=== PATIENT | female | born 1980 | race Caucasian/White ===

== ENCOUNTER 2019-05-11 09:31 | Emergency (ER) | payer BC, SELFPAY ==
--- NOTE | ~2019-05-11 | XR_ITS ---
EXAMINATION: XR wrist RT min 3V DATE: 05/11/2019 10:00 INDICATION: Generalized right wrist pain post fall TECHNIQUE: Posteroanterior, ulnar deviation, oblique, and lateral views of the right wrist were obtai shelia. COMPARISON: none FINDINGS: Alignment is normal. No fracture. Joint spaces are normal. Soft tissues are unremarkable. IMPRESSION: 1. Negative right wrist radiographs. Reviewed, dictated and finalized at location B.
--- NOTE | 2019-05-11 09:34 | ED.UPPEXIN ---
HPI - Extremity Injury (Upper) General Chief Complaint: Extremity Injury, Upper Stated Complaint: Injury to right wrist Time Seen by Provider: 05/11/19 09:54 Source: patient and RN notes reviewed Mode of arrival: ambulatory Limitations: no limitations History of Present Illness HPI narrative: 39-year-old female presents with concern for right breast pain. Reports 2 weeks ago she slipped, injuring her wrist. She denies intervention at that time. She reports 4 days ago she started using a wrist brace occasionally taking Advil. She denies numbness, tingling, weakness in her hand, digits complaint: injury to: right and wrist Other Extremity Injury: Right: wrist Related Data Home Medications Medication Instructions Recorded Confirmed aloe vera 25 mg PO DAILY 05/11/19 05/11/19 duloxetine 20 mg PO BID 05/11/19 05/11/19 gabapentin 600 mg PO HS 05/11/19 05/11/19 levothyroxine 50 mcg PO DAILY 05/11/19 05/11/19 pantoprazole 40 mg PO HS 05/11/19 05/11/19 Allergies Allergy/AdvReac Type Severity Reaction Status Date / Time Penicillins AdvReac Unknown Vomiting Verified 05/11/19 10:09 Review of Systems Review of Systems: Narrative: CONSTITUTIONAL: Denies malaise, chills, sweats, or fever. CARDIOVASCULAR: Denies chest pain, palpitations, or edema. RESPIRATORY: Denies cough or dyspnea. SKIN: Denies bruising or redness MUSCULOSKELETAL: Reports right anterior wrist pain NEUROLOGIC: Denies numbness, weakness. All systems reviewed & are unremarkable except as noted in HPI and below PMFSH Family History Family History (Updated 05/31/16 @ 13:34 by DOCTOR UNKNOWN) Father Hypertension Mother Hypertension Social History Social History Smoking status: Never smoker Alcohol intake: never Comments At time of signature, agree with nursing past medical, surgical, social and family history. There is no relevant family history pertinent to the presenting complaint Exam Narrative: Exam Narrative: GENERAL: Well-appearing, well-nourished, and in no acute distress. HEAD: Normocephalic, atraumatic. EYES: PERRLA, conjunctivae clear NECK: Supple. CHEST: Speaks in full sentences. No respiratory distress. HEART: Regular rate and rhythm. Normal and equal peripheral pulses. EXTREMITIES: Right wrist, hand, digits normal strength and sensation, no edema, normal range of motion. 5/5 strength with [xxx] flexion and extension. Normal sensation with sensitivity to light touch and pain. No open wounds, no skin tenting, no devitalized tissue or atrophy, no trophic changes, no ecchymosis, no obvious deformity, alignment normal, no point tenderness, nearby joints and structures intact. Distal pulses palpable and equal bilaterally, skin warm, dry, pink. Capillary refill less than 3 seconds. SKIN: Warm, dry, no rash. NEURO: Alert and oriented x3. PSYCH: Normal mood and affect Course Course Emergency Course: Patient is aware of diagnosis, understands and agrees to treatment plan. Anticipatory guidance given. Patient agrees to follow-up as directed and is aware of reasons to seek care at the emergency department. Portions of this record may have been created with voice recognition software Vital Signs Vital signs: Vital Signs Temperature 98.2 F 05/11/19 09:45 Pulse Rate 74 05/11/19 09:45 Respiratory Rate 18 05/11/19 09:45 Blood Pressure 110/55 L 05/11/19 09:45 Pulse Oximetry 100 05/11/19 09:45 Temperature 98.2 F 05/11/19 09:45 Pulse Rate 74 05/11/19 09:45 Respiratory Rate 18 05/11/19 09:45 Blood Pressure 110/55 L 05/11/19 09:45 Pulse Oximetry 100 05/11/19 09:45 Reviewed. MDM - Extremity Injury (Upper) MDM Narrative Medical decision making narrative: Patients injury and pain is consistent with musculoskeletal etiology. No signs of neurological or vascular compromise on exam. Compartments and tissues are soft without signs of compartment syndrome. Pain is felt appropriate for further evaluation on an ou
[2019-05-11 09:45] VITALS: BP 110/55; PULSE 74; RESP 18; TEMP 36.8; O2SAT 100
== END 2019-05-11 10:17 | disposition home or self-care (01) ==
PROVIDERS: Emergency Provider Nurse Practitioner
DX: S69.92XA Unspecified injury of left wrist, hand and finger(s), initial encounter (principal); W18.40XA Slipping, tripping and stumbling without falling, unspecified, initial encounter; E03.9 Hypothyroidism, unspecified; N80.9 Endometriosis, unspecified
CPT/HCPCS: 73110; 99213; G0463

== ENCOUNTER → 2022-08-05 14:02 | Outpatient (CLI) | payer OTHER, SELFPAY ==
--- NOTE | ~2022-08-05 | MR_ITS ---
MRI of the right ankle Clinical history: Brain Technique: Coronal proton-density and proton-density fat-sat images, axial proton-density and proton- density fat-sat images, and sagittal proton-density and proton-density fat-sat images were acquired. Findings: Syndesmotic ligaments are intact. There is thickening and mild increased signal of the ante rior talofibular ligament. Posterior talofibular ligament is intact. There is also increased signal o f the calcaneofibular ligament, which is somewhat poorly delineated. Deltoid ligament is probably int act. Medial flexor tendons, peroneal tendons, anterior extensor tendons, and Achilles tendon are intact. No osteochondral lesion of the talar dome identified. There is amorphous edema or cystic change in th e medial aspect of the talar neck, nonspecific. No other bone marrow signal abnormality seen. Joint s paces are preserved. Small tibiotalar joint effusion present. Plantar fascia is intact. No soft tissue mass or fluid collection seen. There is mild subcutaneous so ft tissue edema about the ankle. Impression: Mild thickening and increased signal of the anterior talofibular and calcaneofibular ligaments, mary tible with sprain. Associated mild subcutaneous soft tissue edema. Small tibiotalar joint effusion. Probable benign chronic cystic change in the medial talus versus possibly marrow edema or bone contus ion. Reviewed, dictated and finalized at location . Impression: Mild thickening and increased signal of the anterior talofibular and calcaneofi bular ligaments, compatible with sprain. Associated mild subcutaneous soft tiss ue edema. Small tibiotalar joint effusion. Probable benign chronic cystic change in the medial talus versus possibly marro w edema or bone contusion.
== END ==
PROVIDERS: PCP Nurse Practitioner Family; Visit Provider Podiatrist Foot & Ankle Surgery
DX: S93.401A Sprain of unspecified ligament of right ankle, initial encounter (principal); X58.XXXA Exposure to other specified factors, initial encounter; M25.471 Effusion, right ankle
CPT/HCPCS: 73721

== ENCOUNTER 2023-11-29 06:58 | Outpatient (CLI) | payer OTHER, SELFPAY ==
--- NOTE | ~2023-11-29 | MR_ITS ---
EXAMINATION: MR ankle RT wo con DATE: 11/29/2023 07:39 INDICATION: Right ankle pain. Right ankle sprain. TECHNIQUE: Magnetic resonance imaging (MRI) of the right ankle was performed without intravenous cont rast. Sequences included sagittal PD-weighted FS FSE, sagittal PD-weighted FSE, coronal PD-weighted F S FSE, coronal PD-weighted FSE, axial PD-weighted FS FSE, and axial PD-weighted FSE. COMPARISON: Right ankle MRI 08/05/2022 FINDINGS: Medial ankle ligaments: There are changes of prior sprain of the deltoid ligament characterized by thickening of the superfic ial component. The deep component demonstrates disorganized fibers and increased signal intensity. Lateral ankle ligaments: There are changes of prior lateral ankle sprain characterized by thickening and increased signal inte nsity involving the anterior talofibular ligament, calcaneofibular ligament, and anterior tibiofibula r ligament. The posterior talofibular ligament and posterior tibiofibular ligament are normal. Tendons: The peroneal tendons are normal. The anterior and medial ankle tendons are normal. There is mild Achi lles tendinopathy. Plantar fascia: Normal. Bones/other: There is edema-like marrow signal intensity involving medial malleolus. The talar dome is normal. Fluid: There is an 8 x 4 x 13 mm ganglion cyst anterior to the ankle joint. A skin marker overlies this area . IMPRESSION: 1. Changes of prior medial and lateral ankle sprains. 2. Ganglion cyst anterior to the ankle joint. Reviewed, dictated and finalized at location A.
== END 2023-11-29 06:59 | disposition home or self-care (01) ==
LOC: MICIMG 06:59
PROVIDERS: PCP Podiatrist Foot & Ankle Surgery; Visit Provider Podiatrist Foot & Ankle Surgery
DX: S93.401A Sprain of unspecified ligament of right ankle, initial encounter (principal); X58.XXXA Exposure to other specified factors, initial encounter
CPT/HCPCS: 73721

== ENCOUNTER 2024-03-15 11:55 | Emergency (ER) | payer OTHER, SELFPAY ==
--- OUTSIDE RECORDS SUMMARY | 2024-03-15 11:58 | XMS_ITS | Encounter Summary ---
Author Organization [facility] Address [address] [place] [address] Phone Care Team Providers Care Hot Mill Worker Name Role Phone Klaudia Rolle MD Primary Care Provider [phone] Keon Ellis MD Unavailable [phone] Darren Sullivan APRN, FWS FACULTY ASSISTANT Unavailable + [phone] Caryl Zambrano DO Primary Care Provider [phone] Danae Hughes APRN, FWS FACULTY ASSISTANT Unavailable Reason for Visit * Reason Comments Medication Refill Encounter Details Date Type Department Care Team (Late st Contact Info) Description 07/14/2020 Refill [facility] [address] [place] [address] Klaudia Rolle MD [address] [place] [address] Medication Refill Social History Tobacco Use Types Packs/Day Years Used Date Smoking Tobacco: Never Smokeless Tobacco: Never Alcohol Use Standard Drinks/Week Comments No 0 (1 standard drink = 0.6 oz pur e alcohol) PHQ-2 Answer Date Recorded Total Score - Questions 1-9 0 03/2020 Sexually Active Control Partners Comments Not Currently Comments No Sex and Gender Information Value Date Recorded Sex Assigned at Not on file Legal Sex Female 12:15 AM CDT Gender Identity Not on file Sexual Orientation Not on file COVID-19 Exposure Response Date Recorded In the last month, have you been in contact with someone who was confirmed or suspected to have Coronavirus / COVID-19? No / Unsure 06/19/2020 2:40 PM CDT documented as of this encounter Miscellaneous Notes * Telephone Encounter - Mayela Lemons RN - 07/15/2020 1:58 PM CDT Per nursing clinical judgement, provider to review and approve the medication(s) order(s) if appropriate. Requested Prescriptions Pending Prescriptions Disp Refills Euthyrox 50 MCG Tablet [Pharmacy Med Name: Euthyrox 50 MCG Oral Tablet] 90 Tablet 1 Sig: Take 1 tablet by mouth once daily Thyroid Hormones Protocol Passed - 07/15/2020 1:58 PM Passed - Visit with relevant provider in past 12 months or upcoming 90 days Recent Visits Date Type Provider Dept 06/19/20 Office Visit [facility] 03/11/20 Office Visit Naz Byers [facility] 01/17/20 Office Visit Klaudia Rolle MD [facility] 12/24/19 Office Visit Klaudia Rolle MD [facility] 08/21/19 [facility] Showing recent visits within past 365 days and meeting all other requirements Future Appointments No visits were found meeting these conditions. Showing future appointments within next 90 days and meeting all other requirements Passed - Normal TSH in past 12 months TSH Date Value Ref Range Status 08/24/2019 1.510 0.270 - 4.200 mIU/L Final documented in this encounter Plan of Treatment Upcoming Encounters Date Type Department Care Team (Late st Contact Info) Description 05/22/2024 10:00 AM CDT Office Visit [facility] [address] [place] [address] Darren Sullivan APRN, FWS FACULTY ASSISTANT [address] [place] [address] 07/03/2024 8:20 AM CDT Office Visit [facility] [address] [place] [address] Caryl Zambrano DO [address] [address] documented as of this encounter Visit Diagnoses Diagnosis Acquired hypothyroidism Unspecified hypothyroidism documented in this encounter Additional Health Concerns Assessment Noted Time PHQ-9 Depression Total Score: 0 03/11/19 21 9:41 AM [place]AMP documented as of this encounter Care Teams Hot Mill Worker Relationship Specialty Start Date End Date Klaudia Rolle MD [address] [place] [address] PCP - General Family Medicine 05/25/16 02/06/23 Caryl Zambrano DO [address] [address] PCP - General Family Medicine 07/01/23 Keon Ellis MD [address] [place] [id number] Consulting Physician Neurology 05/25/21 Darren Sullivan APRN, FWS FACULTY ASSISTANT [address] [place] [address] Nurse Practitioner Advanced Practice Nurse 04/13/22 Danae Hughes APRN, FWS FACULTY ASSISTANT [address] [place] [address] Nurse Practitioner Advanced Practice Nurse 08/02/23 documented as of this encounter
--- OUTSIDE RECORDS SUMMARY | 2024-03-15 11:58 | XMS_ITS | Encounter Summary ---
Author Organization [facility] Address [address] [place] [address] Phone Care Team Providers Care Cook Candy Name Role Phone Keon Ellis MD Unavailable [phone] Darren Sullivan APRN, GAS LEAK INSPECTOR Unavailable [phone] Caryl Zambrano DO Primary Care Provider [phone] Danae Hughes APRN, GAS LEAK INSPECTOR Unavailable Reason for Visit * Reason Comments Medication Refill Encounter Details Date Type Department Care Team (Late st Contact Info) Description 02/12/2023 Refill [facility] [address] [place] [address] Darren Sullivan, MARKETING COMMUNICATIONS SPECIALIST, GAS LEAK INSPECTOR [address] [place] [address] Medication Refill Social History Tobacco Use Types Packs/Day Years Used Date Smoking Tobacco: Never Smokeless Tobacco: Never Alcohol Use Standard Drinks/Week Comments No 0 (1 standard drink = 0.6 oz pur e alcohol) PHQ-2 Answer Date Recorded Total Score - Questions 1-9 0 03/11 Sexually Active Control Partners Comments Not Currently Comments No Sex and Gender Information Value Date Recorded Sex Assigned at Not on file Legal Sex Female 12:15 AM CDT Gender Identity Not on file Sexual Orientation Not on file documented as of this encounter Miscellaneous Notes * Telephone Encounter - Jackie Reynolds RN - 02/14/2023 11:42 AM CST Medication failed the protocol, provider to review and approve the medication order if appropriate. Requested Prescriptions Pending Prescriptions Disp Refills gabapentin (NEURONTIN) 300 MG Capsule [Pharmacy Med Name: Gabapentin 300 MG Oral Capsule] 30 Capsule 0 Sig: TAKE 1 CAPSULE BY MOUTH ONCE DAILY BEFORE SUPPER Not Delegated - Anticonvulsants Excluding Benzodiazepines Protocol Failed - 02/12/2023 9:30 AM Failed - This refill cannot be delegated Passed - Visit with relevant provider in past 12 months or upcoming 90 days Recent Visits Date Type Provider Dept 07/16/22 [facility] 04/[facility]22 Office Visit Darren Sullivan APRN, [facility] [place] 03/31/22 [facility] Visit [facility] Showing recent visits within past 365 days and meeting all other requirements Future Appointments Date Type Provider Dept 04/12/23 Appointment Darren Sullivan APRN, [facility] [place] Showing future appointments within next 90 days and meeting all other requirements INE INSTALLER documented in this encounter Plan of Treatment Upcoming Encounters Date Type Department Care Team (Late st Contact Info) Description 05/22/2024 10:00 AM CDT Office Visit [facility] [address] [place] [address] Darren Sullivan APRN, GAS LEAK INSPECTOR [address] [place] [address] 07/03/2024 8:20 AM CDT Office Visit [facility] - [facility] - [place] [address] [place] [address] Caryl Zambrano DO 2 [facility] [place] [address] documented as of this encounter Visit Diagnoses Diagnosis Interstitial cystitis Chronic interstitial cystitis documented in this encounter Additional Health Concerns Assessment Noted Time PHQ-9 Depression Total Score: 0 03/11/19 21 9:41 AM MACHINE INSTALLER documented as of this encounter Care Teams Cook Candy Relationship Specialty Start Date End Date Caryl Zambrano DO [address] [place] [address] PCP - General Family Medicine 07/01/23 Keon Ellis MD [address] [place] [address] Consulting Physician Neurology 05/25/21 Darren Sullivan APRN, GAS LEAK INSPECTOR [address] [place] [address] Nurse Practitioner Advanced Practice Nurse 04/13/22 Danae Hughes APRN, GAS LEAK INSPECTOR [address] [place] [address] Nurse Practitioner Advanced Practice Nurse 08/02/23 documented as of this encounter
--- OUTSIDE RECORDS SUMMARY | 2024-03-15 11:58 | XMS_ITS | Encounter Summary ---
Author Organization [facility] Address [address] [place] [address] Phone Care Team Providers Care Reinforcement Maker Name Role Phone Klaudia Rolle MD Primary Care Provider [phone] Keon Ellis MD Unavailable [phone] Darren Sullivan APRN, QUALITY CONTROL COORDINATOR Unavailable [phone] Caryl Zambrano DO Primary Care Provider [phone] Danae Hughes APRN, QUALITY CONTROL COORDINATOR Unavailable Reason for Visit * Reason Comments Medication Refill Encounter Details Date Type Department Care Team (Late st Contact Info) Description 09/10/2022 Refill [facility] [address] [place] [id number] Darren Sullivan, LENS MATCHER, QUALITY CONTROL COORDINATOR [address] [place] [address] Medication Refill Social History Tobacco Use Types [...] on file documented as of this encounter Plan of Treatment Upcoming Encounters Date Type Department Care Team (Late st Contact Info) Description 05/22/2024 10:00 AM CDT Office Visit [facility] [address] [place] [address] Darren Sullivan, LENS MATCHER, QUALITY CONTROL COORDINATOR [address] [place] [address] 07/03/2024 8:20 AM CDT Office Visit [facility] - [facility] [address] [facility] [place] [address] Caryl Zambrano DO 2 [facility] [address] [place] [address] documented as of this encounter Visit Diagnoses Diagnosis Interstitial cystitis Chronic interstitial cystitis documented in this encounter Additional Health Concerns Assessment Noted Time PHQ-9 Depression Total Score: 0 03/11/19 21 9:41 AM FRAUD ANALYST documented as of this encounter Care Teams Reinforcement Maker Relationship Specialty Start Date End Date Klaudia Rolle MD [address] [place] [address] PCP - General Family Medicine 05/25/16 02/06/23 Caryl Zambrano DO 2 [facility] [address] [place] [address] PCP - General Family Medicine 07/01/23 Keon Ellis MD [address] [place] [address] Consulting Physician Neurology 05/25/21 Darren Sullivan APRN, QUALITY CONTROL COORDINATOR [address] [place] [address] Nurse Practitioner Advanced Practice Nurse 04/13/22 Danae Hughes APRN, QUALITY CONTROL COORDINATOR [address] [place] [address] Nurse Practitioner Advanced Practice Nurse 08/02/23 documented as of this encounter
--- OUTSIDE RECORDS SUMMARY | 2024-03-15 11:58 | XMS_ITS | Clinical Summary ---
Author Organization [facility] Address [address] [place] [address] Care Team Providers Care Detective Youth Bureau Name Role Phone Klaudia Rolle MD Primary Care Provider [phone] Source Comments [facility],non-owned Affiliates and Associated Physician Practices is amultiple site organization consisting of ambulatory clinics and hospital sitesin [place], [place], [place] and [place]. This disclosure is being madepursuant to the Care Everywhere program and may not contain all information available regarding this patient. Last updated 17.[facility] Allergies Active Allergy Reactions Criticality Noted Date Comments Penicillins Nausea and/or Vomiting Low 07/13/2010 Medications * Be aware that medications may not be up to date on this document. Alwaysverify current medications with the patient. Medication Sig Dispensed Refills Start Date End Date Status pantoprazole (PROTONIX) 40 MG packet Take 40 mg by mouth once daily Active levothyroxine (SYNTHROID) 50 MCG tablet Take 50 mcg by mouth daily before breakfast Active ALOE VERA PO Take 1,800 mg by mouth 4 times daily Active USTELL 120 MG capsule Take 120 mg by mouth 4 times daily 40 capsule 3 02/14/2018 Active Magnesium 400 MG Take 400 mg by mouth once daily Active Calcium Carbonate-Vit D-Min (CALCIUM 1200 PO) Take 1,200 mg by mouth once daily Active Cholecalciferol (VITAMIN D3) 31916 units Take 10,000 Units by mouth once daily Active USTELL 120 MG capsuleIndications:C hronic interstitial cystitis,Chronic pelvic pain in female,Dysuria,Muscl e spasm Take 120 mg by mouth 3 times daily as needed 40 capsule 4 04/10/2019 Active ibuprofen (MOTRIN) 600 MG tablet Take 1 tablet by mouth every 6 hours as needed for Pain 30 tablet 12/12/2019 Active onabotulinumtoxin A (BOTOX) 200 units injectionIndications :Muscle Spasticity Inject 200 Units into muscle Every 90 days Reasons: Muscle Spasticity 1 vial 1 12/24/2019 Active Elagolix Sodium (ORILISSA) 150 MG TABS Take 1 tablet by mouth once daily 30 tablet 5 12/24/2019 Active gabapentin (NEURONTIN) 300 MG capsule Take 1 capsule by mouth once daily in the morning 90 capsule 2 07/04/2020 Active gabapentin (NEURONTIN) 600 MG tablet Take 1 (one) tablet by mouth at bedtime 90 tablet 3 08/21/2020 Active Active Problems Problem Noted Date Diagnosed Date H/O: hysterectomy 08/17/2017 Endometriosis 07/06/2017 Interstitial cystitis 08/09/2016 Bladder pain 08/02/2016 Chronic constipation 08/02/2016 Overview (09/23/2017): Overview: Doing well on magnesium oxide Chronic interstitial cystitis 08/02/2016 Chronic pelvic pain in female 08/02/2016 Dyschezia 08/02/2016 Dyspareunia in female 08/02/2016 Dysuria 08/02/2016 Myalgia of pelvic floor 08/02/2016 Urinary frequency 08/02/2016 Urinary urgency 08/02/2016 GERD (gastroesophageal reflux disease) 6 Overview (09/23/2017): Overview: Well controlled on Pantoprazole 40mg daily for many years Hypothyroid 03/12/2015 Gastroesophageal reflux disease 12/12/2013 Overview (09/23/2017): Overview: GERD Vulvar vestibulitis 01/27/2011 Dyspepsia Abdominal bloating Pudendal neuralgia Immunizations Name Administration Dates Next Due INFLUENZA VACCINE 10/19/2019 INFLUENZA VACCINE, QUADR. (F LUZONE; FLULAVAL; FLUARIX; AFLURIA QUADRIVALENT; 6MO+), 0.5 ML (IIV4) 12/04/2018,12/04/2017 TDAP (7yrs+) 08/21/2019 Family History Medical History Relation Name Comments Depression Father Hypercholesterolemia Father Hypertension Father Lung Cancer Maternal Grandfather Osteoporosis Maternal Grandmother Hypercholesterolemia Mother Hypertension Mother Cancer - Colon Paternal Grandfather Lung Cancer Paternal Grandmother Relation Name Status Comments Father Maternal Grandfather Maternal Grandmother Mother Paternal Grandfather Paternal Grandmother Social History Tobacco Use Types Packs/Day Years Used Date Smoking Tobacco: Never Smokeless Tobacco: Never Alcohol Use Standard Drinks/Week Comments No 0 (1 standard drink = 0.6 oz pur e alcohol) RARE AUDIT-C Answer Date Recorded Q1: How often do you have a drink containing alc ohol? Never 02/26/2020 Average Number of Drinks Not on file 021 Frequency of Binge Drinking Not on file 02/07 Sex and Gender Information Value Date Recorded Sex Assigned at Not on file Gender Identity Not on file Sexual Orientation Not on file Last Filed Vital Signs Vital Sign Reading Time Taken Comments Blood Pressure 108/62 02/26/2020 8:33 AM ACTIVITY MANAGER Pulse 67 12/12/2019 5:49 PM ACTIVITY MANAGER Temperature 36.3 C (97.3 F) 12/24/2019 8:24 AM ACTIVITY MANAGER Respiratory Rate 16 12/12/2019 5:26 PM ACTIVITY MANAGER Oxygen Saturation 100% 12/12/2019 5:26 PM ACTIVITY MANAGER Inhaled Oxygen Concentration - - Weight 65.9 kg (145 lb 3.2 oz) 02/26/2020 8:33 A M ACTIVITY MANAGER Height 154.9 cm (5' 1 ) 02/26/2020 8:33 AM ACTIVITY MANAGER Body Mass Index 27.44 02/26/2020 8:33 AM ACTIVITY MANAGER Plan of Treatment Health Maintenance Due Date Last Done Comments LIPID TESTING 1980 HIV SCREENING 04/25/1995 HEPATITIS C SCREENING 04/20/1998 HEPATITIS B VACCINE (1 of 3 - 19+ 3-dose series) 04/25/1999 MAMMOGRAM 01/22/2022 01/23/2020 COVID-19 VACCINE (2023- season) 2023 INFLUENZA VACCINE (#1) 2023 , 10/19/2019, 10/19/2019, Additional history exists DEPRESSION SCREENING 02/08/2024 DTAP/TDAP/TD VACCINES (2 - Td or Tdap) 08/20/2029 08/21/2019 ZOSTER VACCINE (1 of 2) 2030 HIB VACCINE Aged Out No longer eligi ble based on patient's age to complete this topic HPV VACCINE Aged Out No longer eligi ble based on patient's age to complete this topic MENINGOCOCCAL (Group B) VACCINE Aged Out No longer eligible based on patient's age to complete this topic MENINGOCOCCAL VACCINE Aged Out No patsy shira eligible based on patient's age to complete this topic PNEUMOCOCCAL VACCINE Aged Out No long er eligible based on patient's age to complete this topic Advance Directives * Full Code (Latest Code Status on File) Date Activated Date Inactivated Comments 07/06/2017 4:04 PM 07/07/2017 2:46 PM Care Teams Detective Youth Bureau Relationship Specialty Start Date End Date Klaudia Rolle MD PCP - General Family Medicine 09/23/17
--- OUTSIDE RECORDS SUMMARY | 2024-03-15 11:58 | XMS_ITS | Encounter Summary ---
Author Organization [facility] Address [address] [place] [address] Phone Care Team Providers Care Telephone Order Supervisor Name Role Phone Klaudia Rolle MD Primary Care Provider [phone] Keon Ellis MD Unavailable [phone] Darren Sullivan APRN, GROUND LAYER Unavailable [phone] Caryl Zambrano DO Primary Care Provider [phone] Danae Hughes APRN, GROUND LAYER Unavailable Reason for Visit * Reason Comments Medication Refill Encounter Details Date Type Department Care Team (Late st Contact Info) Description 12/23/2022 Refill [facility] [address] [place] [id number] Darren Sullivan, CABIN EQUIPMENT SUPERVISOR, GROUND LAYER [address] [place] [address] Medication Refill Social History Tobacco Use Types [...] Description 05/22/2024 10:00 AM CDT Office Visit [facility] [address] [place] [address] Darren Sullivan, CABIN EQUIPMENT SUPERVISOR, GROUND LAYER [address] [place] [address] 07/03/2024 8:20 AM CDT Office Visit [facility] - Family [facility] [address] [facility] [place] [address] Caryl Zambrano DO [address] [facility] [address] [place] [address] documented as of this encounter Visit Diagnoses Not on filedocumented in this encounter Additional Health Concerns Assessment Noted Time PHQ-9 Depression Total Score: 0 03/11/19 21 9:41 AM TOILET AND LAUNDRY SOAP SUPERVISOR documented as of this encounter Care Teams Telephone Order Supervisor Relationship Specialty Start Date End Date Klaudia Rolle MD [address] [place] [address] PCP - General Family Medicine 05/25/16 02/06/23 Caryl Zambrano DO [address] [facility] [address] [place] [address] PCP - General Family Medicine 07/01/23 Keon Ellis MD [address] [place] [address] Consulting Physician Neurology 05/25/21 Darren Sullivan APRN, GROUND LAYER [address] [place] [address] Nurse Practitioner Advanced Practice Nurse 04/13/22 Danae Hughes APRN, GROUND LAYER [address] [place] [address] Nurse Practitioner Advanced Practice Nurse 08/02/23 documented as of this encounter
--- OUTSIDE RECORDS SUMMARY | 2024-03-15 11:58 | XMS_ITS | Encounter Summary ---
Author Organization [facility] Address [address] [place] [address] Phone Care Team Providers Care Home Health Administrator Name Role Phone Klaudia Rolle MD Primary Care Provider [phone] Keon Ellis MD Unavailable [phone] Darren Sullivan APRN, GENOMICS SCIENTIST Unavailable [phone] Caryl Zambrano DO Primary Care Provider [phone] Danae Hughes APRN, GENOMICS SCIENTIST Unavailable Reason for Visit * Reason Onset Date Comments Medication Refill 09/14/2021 Encounter Details Date Type Department Care Team (Late st Contact Info) Description 09/14/2021 Refill [facility] [address] [place] [id number] Darren Sullivan, VENTILATED RIB FITTER, GENOMICS SCIENTIST [address] [place] [address] Medication Refill Social History Tobacco Use Types [...] encounter Miscellaneous Notes * Telephone Encounter - Janet Alcala RN - 09/14/2021 2:24 PM CDT Received message for Gabapentin refill. Forwarded to provider for authorization. documented in this encounter Plan of Treatment Upcoming Encounters Date Type Department Care Team (Late st Contact Info) Description 05/22/2024 10:00 AM CDT Office Visit [facility] [address] [place] [address] Darren Sullivan, VENTILATED RIB FITTER, GENOMICS SCIENTIST [address] [place] [address] 07/03/2024 8:20 AM CDT Office Visit [facility] - Family Medicine - [place] [address] [place] [address] Caryl Zambrano DO [address] [address] documented as of this encounter Visit Diagnoses Diagnosis Interstitial cystitis Chronic interstitial cystitis documented in this encounter Additional Health Concerns Assessment Noted Time PHQ-9 Depression Total Score: 0 03/11/19 21 9:41 AM PLANT BIOLOGY PROFESSOR documented as of this encounter Care Teams Home Health Administrator Relationship Specialty Start Date End Date Klaudia Rolle MD [address] [place] [address] PCP - General Family Medicine 05/25/16 02/06/23 Caryl Zambrano DO [address] [facility] [facility] [address] [address] PCP - General Family Medicine 07/01/23 Keon Ellis MD [address] [place] [address] Consulting Physician Neurology 05/25/21 Darren Sullivan APRN, GENOMICS SCIENTIST [address] [place] [address] Nurse Practitioner Advanced Practice Nurse 04/13/22 Danae Hughes APRN, GENOMICS SCIENTIST [address] [place] [address] Nurse Practitioner Advanced Practice Nurse 08/02/23 documented as of this encounter
--- OUTSIDE RECORDS SUMMARY | 2024-03-15 11:58 | XMS_ITS | Clinical Summary ---
Author Organization [facility] Address [address] [place] [address] Phone Care Team Providers Care Lap Checker Name Role Phone Keon Ellsi MD Unavailable Darren Sullivan APRN, HAND WOODWORKING SANDER Unavailable [phone] Caryl Zambrano DO Primary Care Provider [phone] Danae Hughes APRN, HAND WOODWORKING SANDER Unavailable Allergies Active Allergy Reactions Criticality Noted Date Comments Penicillins Unknown Medications Aloe Vera Freeze Dried Powder Take 4 Tabs by mouth. Noon Active MAGNESIUM PO Take by mouth every evening. Active ibuprofen (MOTRIN) 800 MG TabletIndications: Sprain of right ankle, unspecified ligament, subsequent encounter Take 1 Tablet by mouth every 8 hours. 90 Tablet 07/17/19 23 Active Additional Information Patient not taking.Reported on 10/19/2023 gabapentin (NEURONTIN) 600 MG TabletIndications: Interstitial cystitis Take 1 tablet by mouth nightly 90 Tablet 2 08/23/19 24 Active Additional Information Patient taking differently:600 mg Oral NIGHTLY,Indications: BLADDER PAIN, Reported on 10/19/2023 Meth-Hyo-M Bl-Na Phos-Ph Nathaniel (Uribel) 118 MG CapsuleIndications :BLADDER PAIN Take by mouth every other day. NIGHT Indications: BLADDER PAIN Active Multiple Vitamin (MULTI-VITAMIN PO) Take by mouth daily. Active gabapentin (NEURONTIN) 300 MG CapsuleIndications :Interstitial cystitis Take 1 Capsule by mouth Every Afternoon. 90 Capsule 1 11/21/19 24 Active hydrOXYzine (ATARAX) 25 MG TabletIndications: Interstitial cystitis Take 1 Tablet by mouth daily as needed (Bladder pain). TAKE 1 TABLET BY MOUTH EVERY 6 HOURS NEEDED 90 Tablet 11/28/19 24 Active levothyroxine (SYNTHROID) 50 MCG TabletIndications: Acquired hypothyroidism Take 1 Tablet by mouth daily. 90 Tablet 1 11/25/19 24 Active pantoprazole (PROTONIX) 40 MG Tablet Delayed Response Take 1 Tablet by mouth daily. 90 Tablet 02/08/19 25 Active Active Problems Problem Noted Date Diagnosed Date H/O: hysterectomy 08/17/2017 Endometriosis 08/09/2016 Interstitial cystitis 08/09/2016 Hypothyroid 03/12/2015 GERD (gastroesophageal reflux disease) 6 Encounters Date Type Department Care Team Description 02/09/2024 Refill [facility] [address] [place] [address] Danae Hughes APRN, HAND WOODWORKING SANDER Medication Refill 01/04/2024 10:35 PM EMPLOYEE REPRESENTATIVE - 01/04/2024 11:21 PM EMPLOYEE REPRESENTATIVE Emergency [facility] Emergency [address] [place] [address] Sly Jessica MD OB + stool Discharge Disposition: Discharged to home or Selfcare 01/04/2024 Travel from Last 3 Months Immunizations Immunization Administration Dates Next Due Influenza Vaccine 10/19/2019 Influenza Vaccine greater than 3 yrs 11/08/2019 Influenza Vaccine, Quadrivalent, PF 11/07,12/02/2020,10/19/2019,2018,12/04/2017 Influenza, Seasonal, Injecta ble, Undefined 11/08/2019 TDAP Vaccine 07/07/2022,08/21/2019 Family History Medical History Relation Name Comments Cancer Father esophageal and liver Hypertension Father Cancer Maternal Grandfather Hypertension Mother Thyroid Disease Mother Cancer Paternal Grandmother Relation Name Status Comments Father Maternal Grandfather Mother Alive Paternal Grandmother Social History Tobacco Use Types Packs/Day Years Used Date Smoking Tobacco: Never Smokeless Tobacco: Never Tobacco Cessation:Counseling Given: Not Answered Alcohol Use Standard Drinks/Week Comments No 0 (1 standard drink = 0.6 oz pur e alcohol) [facility] Utilities Answer Date Recorded In the past 12 months has th e electric, gas, oil, or water company threatened to shut off services in your home? No 06/29/2023 Social Connection and Isolation Panel [NHANES] A nswer Date Recorded In a typical week, how many times do you talk on the phone with family, friends, or neighbors? Once a week 06/29/2023 How often do you get togethe r with friends or relatives? Patient declined 06/29/2023 How often do you attend temple or shinto serv ices? Never 06/29/2023 Do you belong to any clubs o r organizations such as temple groups, unions, fraternal or athletic groups, or school groups? No 06/29/2023 How often do you attend meet ings of the clubs or organizations you belong to? Never 06/29/2023 Are you , , di vorced, , never , or living with a partner? 06/29/2023 AUDIT-C Answer Date Recorded Q1: How often do you have a drink containing alcohol? Never 06/29/2023 Q2: How many drinks containi ng alcohol do you have on a typical day when you are drinking? Patient does not drink Q3: How often do you have si x or more drinks on one occasion? Never 06/29/2023 Overall Financial Resource Strain (CARDIA) Answe r Date Recorded How hard is it for you to pa y for the very basics like food, housing, medical care, and heating? Not hard at all 06/29/2023 PHQ-2 Answer Date Recorded Total Score - Questions 1-9 0 03/11 [facility] of Occupat ional Health - Occupational Stress Questionnaire Answer Date Recorded Do you feel stress - tense, restless, nervous, or anxious, or unable to sleep at night because your mind is troubled all the time - these days? Not at all 06/29/2023 Exercise Vital Sign Answer Date Recorde d On average, how many days pe r week do you engage in moderate to strenuous exercise (like a brisk walk)? 5 days 06/29/2023 On average, how many minutes do you engage in exercise at this level? 50 min 06/29/2023 Hunger Vital Sign Answer Date Recorded Within the past 12 months, y ou worried that your food would run out before you got the money to buy more. Never true 06/29/19 24 Within the past 12 months, t he food you bought just didn't last and you didn't have money to get more. Never true 06/29/2023 PRAPARE - Transportation Answer Date Re corded In the past 12 months, has l ack of transportation kept you from medical appointments or from getting medications? No 06/08 In the past 12 months, has l ack of transportation kept you from meetings, work, or from getting things needed for daily living? No 06/29/2023 Housing Stability Vital Sign Answer [place] e Recorded In the last 12 months, was t here a time when you were not able to pay the mortgage or rent on time? No 06/29/2023 In the last 12 months, how many places have you lived? 1 06/29/2023 In the last 12 months, was t here a time when you did not have a steady place to sleep or slept in a alf (including now)? No 06/29/2023 Sexually Active Control Partners Comments Not Currently Comments No Sex and Gender Information Value Date Recorded Sex Assigned at Not on file Legal Sex Female 12:15 AM CDT Gender Identity Not on file Sexual Orientation Not on file Last Filed Vital Signs Vital Sign Reading Time Taken Comments Blood Pressure 109/62 01/04/2024 10:30 PM EMPLOYEE REPRESENTATIVE Pulse 74 01/04/2024 10:30 PM EMPLOYEE REPRESENTATIVE Temperature 37 C (98.6 F) 01/04/2024 10:30 PM EMPLOYEE REPRESENTATIVE Respiratory Rate 19 01/04/2024 10:30 PM EMPLOYEE REPRESENTATIVE Oxygen Saturation 100% 01/04/2024 10:30 PM EMPLOYEE REPRESENTATIVE Inhaled Oxygen Concentration - - Weight 66.7 kg (147 lb) 01/04/2024 10:30 PM EMPLOYEE REPRESENTATIVE Height 154.9 cm (5' 1 ) 01/04/2024 10:30 PM EMPLOYEE REPRESENTATIVE Body Mass Index 27.78 01/04/2024 10:30 PM EMPLOYEE REPRESENTATIVE Plan of Treatment Upcoming Encounters Date Type Department Care Team (Late st Contact Info) Description 05/22/2024 10:00 AM CDT Office Visit [facility] [address] [place] [phone] Darren Sullivan, RADIOLOGY ADMINISTRATOR, HAND WOODWORKING SANDER [address] [place] [address] 07/03/2024 8:20 AM CDT Office Visit [facility] - Family [facility] [address] [facility] [place] [phone] Caryl Zambrano, DO [address] [address] Health Maintenance Due Date Last Done Comments Hepatitis C Virus (HCV) Screening 1980 Hepatitis B Immunization (1 of 3 - 19+ 3-dose series) 04/25/1999 SARS-COV-2 Immunization (2023- season) 2023 11/22/2021, 01/09/2021, 06/01/2020, Additional history exists Td Immunization Every 10 Years (Adults With 1 Tdap) 07/07/2032 07/07/2022, 08/21/2019 Respiratory Syncytial Virus (RSV) Immunization (Adult) (1 - 1-dose 75+ series) 04/25/2055 Discussion re Starting/Frequency of Mammograms Completed 05/19/2023, 04/01/2022, 12/17/2021, Additional history exists Influenza Immunization Completed , 02/14/2023, 11/22/2021, Additional history exists Meningococcal Immunization (ACWY) Aged Out No longer eligible based on patient's age to complete this topic Pneumococcal Immunization Combined Aged Out No longer eligible based on patient's age to complete this topic Rotavirus Immunization Aged Out No lo nger eligible based on patient's age to complete this topic Procedures Procedure Name Priority Date/Time Associated Diagnosis Comments O & P, TRAVEL HX OR IMMUNOCOMPROMISED, FECES, BELL OPE Routine 01/06/2024 12:04 PM EMPLOYEE REPRESENTATIVE Diarrhea, unspecified type STOOL, OVA & PARASITES (O&P) Routine 01/06/2024 12:04 PM EMPLOYEE REPRESENTATIVE Diarrhea, unspecified type HANNAH DIAG BILATERAL DIGITAL W CAD W SUSAN Routine 05/19/2023 10:36 AM CDT Abnormal mammogram Mass of breast, unspecified laterality from Last 3 Months or Most Recently Relevant to Health Maintenance Results * O & P, TRAVEL HX OR IMMUNOCOMPROMISED, FECES, SUMPTER OPE (01/06/2024 12:04 PM EMPLOYEE REPRESENTATIVE) Pathologist [facility] OPE, OVA AND PARASITE, MICROSCOPY, F SEE NOTE 01/11/2024 9:01 AM EMPLOYEE REPRESENTATIVE [facility] Comment: SOURCE: STOOL, STLP OVA AND PARASITE, MICROSCOPY, F FINAL No parasites seen. Cryptosporidium, Cyclospora, and microsporidia are not readily detected by this method. Single negative specimen does not rule out parasitic infection. Test Performed by: [place] [address] Metal Die Finisher: Benny Beasley Ph.D.; CLIA# [id number] Stool Non-Phlebotomy Collection / Unknown 01/06/2024 12:04 PM EMPLOYEE REPRESENTATIVE 01/06/2024 12:10 PM EMPLOYEE REPRESENTATIVE us Sly Jessica MD LAB SEND OUTS Final Resu lt [facility] [place] * HANNAH DIAG BILATERAL DIGITAL W CAD W SUSAN (05/19/2023 10:36 AM CDT) Anatomical Region Laterality Modality breast Bilateral Mammography 05/19/2023 10:0 9 AM CDT Narrative 05/19/2023 12:50 PM CDT - HANNAH DIAG BILATERAL DIGITAL W CAD W SUSAN - HANNAH US BREAST LIMITED RT BILATERAL DIGITAL DIAGNOSTIC MAMMOGRAM 3D/2D WITH CAD WITH MEDIOLATERAL OBLIQUE CRANIOCAUDAL AND RIGHT ULTRASOUND: 05/19/2023 The study was acquired using digital technology and interpreted from soft copy. Current study was also evaluated with ICAD version 7.2. 2D digital mammographic views, as well as 3D digital tomosynthesis were performed in the CC and MLO projections. CLINICAL: Diagnostic study. Patient returns for a 2 year follow-up right breast. Left annual due. COMPARISONS: Comparison is made to exams dated: 04/01/2022, 12/17/2021, 05/18/2021, 03/27/2021, and 01/14/2020 [facility]. BREAST TISSUE:The tissue of both breasts is heterogeneously dense. This may lower the sensitivity of mammography. FINDINGS: BILATERAL DIAGNOSTIC MAMMOGRAM: The previously seen mass in the right breast at the 8 o'clock middle depth is stable. No other significant masses, calcifications, or other findings are seen in either breast. Further evaluation was obtained with sonography. TARGETED RIGHT BREAST ULTRASOUND: At the 9 o'clock position of the right breast, 6 cm from the nipple, there is a 6 mm which previously measured 9 mm. At the 9 o'clock position, 4 cm from the nipple, there is a 9 mm hypoechoic lesion which is stable. At the 8 o'clock position, 4 cm from the nipple, there is a stable 6 mm cyst. The findings in the right breast demonstrate 2 year stability and are now considered benign. IMPRESSION: OVERALL STUDY BIRADS: 2 BENIGN The findings in the right breast are stable and are now considered benign. There is no mammographic or sonographic evidence of malignancy. A 1 year screening mammogram is recommended. The results and recommendations were discussed with the patient. Electronically signed by: Alex Ceja M.D. ll/:05/19/2023 11:19:52 Assistant Boiler Operator(s): Tiffany Dunne RT(R)(M), [facility]; Porsha France RDMS, [facility] letter sent: Normal Exam Reading location: [facility] OVERALL STUDY BIRADS: 2 Benign Procedure Note Alex Ceja MD - 05/19/2023 - HANNAH DIAG BILATERAL DIGITAL W CAD W SUSAN - HANNAH US BREAST LIMITED RT BILATERAL DIGITAL DIAGNOSTIC MAMMOGRAM 3D/2D WITH CAD WITH MEDIOLATERAL OBLIQUE CRANIOCAUDAL AND RIGHT ULTRASOUND: 05/19/2023 The study was acquired using digital technology and interpreted from soft copy. Current study was also evaluated with ICAD version 7.2. 2D digital mammographic views, as well as 3D digital tomosynthesis were performed in the CC and MLO projections. CLINICAL: Diagnostic study. Patient returns for a 2 year follow-up right breast. Left annual due. COMPARISONS: Comparison is made to exams dated: 04/01/2022, 12/17/2021, 05/18/2021, 03/27/2021, and 01/14/2020 [facility]. BREAST TISSUE:The tissue of both breasts is heterogeneously dense. This may lower the sensitivity of mammography. FINDINGS: BILATERAL DIAGNOSTIC MAMMOGRAM: The previously seen mass in the right breast at the 8 o'clock middle depth is stable. No other significant masses, calcifications, or other findings are seen in either breast. Further evaluation was obtained with sonography. TARGETED RIGHT BREAST ULTRASOUND: At the 9 o'clock position of the right breast, 6 cm from the nipple, there is a 6 mm which previously measured 9 mm. At the 9 o'clock position, 4 cm from the nipple, there is a 9 mm hypoechoic lesion which is stable. At the 8 o'clock position, 4 cm from the nipple, there is a stable 6 mm cyst. The findings in the right breast demonstrate 2 year stability and are now considered benign. IMPRESSION: OVERALL STUDY BIRADS: 2 BENIGN The findings in the right breast are stable and are now considered benign. There is no mammographic or sonographic evidence of malignancy. A 1 year screening mammogram is recommended. The results and recommendations were discussed with the patient. Electronically signed by: Alex Ceja M.D. ll/:05/19/2023 11:19:52 Assistant Boiler Operator(s): RT Ck(R)(M), [facility]; Porsha France RDMS, [facility] letter sent: Normal Exam Reading location: [facility] OVERALL STUDY BIRADS: 2 Benign us Naz Byers PAC IMG MAMMO ORDERABLES Fin al Result from Last 3 Months or Most Recently Relevant to Health Maintenance Insurance [facility] Care Teams Lap Checker Relationship Specialty Start Date End Date Caryl Zambrano DO [address] [address] PCP - General Family Medicine 07/01/23 Keon Ellis MD [address] [place] [address] Consulting Physician Neurology 05/25/21 Darren Sullivan APRN, HAND WOODWORKING SANDER [address] [place] [address] Nurse Practitioner Advanced Practice Nurse 04/13/22 Danae Hughes APRN, HAND WOODWORKING SANDER [address] [place] [address] Nurse Practitioner Advanced Practice Nurse 08/02/23
--- OUTSIDE RECORDS SUMMARY | 2024-03-15 11:58 | XMS_ITS | Referral Summary ---
Author Organization [facility] Address [address] [place] [address] Care Team Providers Care Assistant Plant Manager Name Role Phone Klaudia Rolle MD Primary Care Provider [phone] Source Comments [facility],non-owned Affiliates and Associated Physician Practices is amultiple site organization consisting of ambulatory clinics and hospital sitesin [place], [place], [place] and [place]. This disclosure is being madepursuant to the Care Everywhere program and may not contain all information available regarding this patient. Last updated 17.[facility] Allergies Active Allergy Reactions Criticality Noted Date [...] mouth once daily Active Cholecalciferol (VITAMIN D3) 59485 units Take 10,000 Units by mouth once [...] 0.5 ML (IIV4) 12/04/2018,12/04/2017 TDAP (7yrs+) 08/21/2019 Social History Tobacco Use Types Packs/Day Years [...] Comments Blood Pressure 108/62 02/26/2020 8:33 AM HIGH SCHOOL ENGLISH TEACHER Pulse 67 12/12/2019 5:49 PM HIGH SCHOOL ENGLISH TEACHER Temperature 36.3 C (97.3 F) 12/24/2019 8:24 AM HIGH SCHOOL ENGLISH TEACHER Respiratory Rate 16 12/12/2019 5:26 PM HIGH SCHOOL ENGLISH TEACHER Oxygen Saturation 100% 12/12/2019 5:26 PM HIGH SCHOOL ENGLISH TEACHER Inhaled Oxygen Concentration - - Weight 65.9 kg (145 lb 3.2 oz) 02/26/2020 8:33 A M HIGH SCHOOL ENGLISH TEACHER Height 154.9 cm (5' 1 ) 02/26/2020 8:33 AM HIGH SCHOOL ENGLISH TEACHER Body Mass Index 27.44 02/26/2020 8:33 AM HIGH SCHOOL ENGLISH TEACHER Plan of Treatment Not on file Advance Directives * Full Code (Latest Code Status on File) Date Activated Date Inactivated Comments 07/06/2017 4:04 PM 07/07/2017 2:46 PM Care Teams Assistant Plant Manager Relationship Specialty Start Date End Date Klaudia Rolle MD PCP - General Family Medicine 09/23/17
--- OUTSIDE RECORDS SUMMARY | 2024-03-15 11:58 | XMS_ITS | Encounter Summary ---
Author Organization [facility] Address [address] [place] [address] Phone Care Team Providers Care Plastics Production Machine Operator Name Role Phone Keon Ellis MD Unavailable [phone] Darren Sullivan APRN, PUBLIC WEIGHER Unavailable [phone] Caryl Zambrano DO Primary Care Provider [phone] Danae Hughes APRN, PUBLIC WEIGHER Unavailable Reason for Visit * Reason Comments Medication Refill Encounter Details Date Type Department Care Team (Late st Contact Info) Description 07/26/2023 Refill [facility]Y [address] [place] [address] Darren Sullivan, RISK CONTROL FIELD REPRESENTATIVE, PUBLIC WEIGHER [address] [place] [address] Medication Refill Social History Tobacco Use Types Packs/Day Years Used Date Smoking Tobacco: Never Smokeless Tobacco: Never Alcohol Use Standard Drinks/Week Comments No 0 (1 standard drink = 0.6 oz pur e alcohol) [facility] Utilities Answer Date Recorded In the past 12 months has [employer] electric, gas, oil, or water company threatened [...] declined 06/29/2023 How often do you attend orthodoxy or hoahaoism serv ices? Never 06/29/2023 Do you belong to any clubs o r organizations such as orthodoxy groups, unions, fraternal or athletic groups, or [...] Total Score - Questions 1-9 0 03/11 [employer] of Occupat ional Health - Occupational Stress [...] place to sleep or slept in a long term (including now)? No 06/29/2023 Sexually Active Control Partners Comments Not Currently Comments No Sex and Gender Information Value Date Recorded Sex Assigned at Not on file Legal Sex Female 12:15 AM CDT Gender Identity Not on file Sexual Orientation Not on file documented as of this encounter Miscellaneous Notes * Telephone Encounter - Jackie Reynolds RN - 07/28/2023 11:31 AM CDT Medication failed the protocol, provider to review and approve the medication order if appropriate. Requested Prescriptions Pending Prescriptions Disp Refills hydrOXYzine (ATARAX) 25 MG Tablet [Pharmacy Med Name: hydrOXYzine HCl 25 MG Oral Tablet] 90 Tablet 0 Sig: TAKE 1 TABLET BY MOUTH EVERY 6 HOURS NEEDED Not Delegated - Off Protocol Failed - 07/26/2023 9:16 AM Failed - This refill cannot be delegated Passed - Visit with relevant provider in past 12 months or upcoming 90 days Recent Visits Date Type Provider Dept 07/01/23 Office Visit Caryl Zambrano DO [facility] 04/12/23 Office Visit Darren Sullivan APRN, [facility] [place] Showing recent visits within past 365 days and meeting all other requirements Future Appointments Date Type Provider Dept 10/18/23 Appointment Darren Sullivan APRN, [facility] [place] Showing future appointments within next 90 days and meeting all other requirements documented in this encounter Plan of Treatment Upcoming Encounters Date Type Department Care Team (Late st Contact Info) Description 05/22/2024 10:00 AM CDT Office Visit [facility] [address] [place] [address] Darren Sullivan APRN, PUBLIC WEIGHER [address] [place] [address] 07/03/2024 8:20 AM CDT [facility] [address] [place] [address] Caryl Zambrano DO [address] [facility] [facility] [address] documented as of this encounter Visit Diagnoses Diagnosis Interstitial cystitis Chronic interstitial cystitis documented in this encounter Additional Health Concerns Assessment Noted Time PHQ-9 Depression Total Score: 0 03/11/19 21 9:41 AM HOG COOLER documented as of this encounter Care Teams Plastics Production Machine Operator Relationship Specialty Start Date End Date Caryl Zambrano DO [address] [facility] [place] [address] PCP - General Family Medicine 07/01/23 Keon Ellis MD [address] [place] [address] Consulting Physician Neurology 05/25/21 Darren Sullivan APRN, PUBLIC WEIGHER [address] [place] [address] Nurse Practitioner Advanced Practice Nurse 04/13/22 Danae Hughes APRN, PUBLIC WEIGHER [address] [place] [address] Nurse Practitioner Advanced Practice Nurse 08/02/23 documented as of this encounter
--- OUTSIDE RECORDS SUMMARY | 2024-03-15 11:58 | XMS_ITS | Patient Health Summary ---
Author Organization [facility] Address [address] [place] [address] Care Team Providers Care Critical Care Clinical Nurse Specialist Name Role Phone Klaudia Rolle MD Primary Care Provider [phone] Note from [facility],non-owned Affiliates and Associated Physician Practices is amultiple site organization consisting of ambulatory clinics and hospital sitesin [place], [place], [place]. This disclosure is being madepursuant to the Care Everywhere program and may not contain all information available regarding this patient. Last updated 17.[facility] Allergies * Penicillins(Nausea and/or Vomiting) -Low Criticality Medications * Be aware that medications may not be up to date on this document. Alwaysverify current medications with the patient. * pantoprazole (PROTONIX) 40 MG packet Take 40 mg by mouth once daily * levothyroxine (SYNTHROID) 50 MCG tablet Take 50 mcg by mouth daily before breakfast * ALOE VERA PO Take 1,800 mg by mouth 4 times daily * USTELL 120 MG capsule(Started 02/14/2018) Take 120 mg by mouth 4 times daily 3 refills remaining * Magnesium 400 MG Take 400 mg by mouth once daily * Calcium Carbonate-Vit D-Min (CALCIUM 1200 PO) Take 1,200 mg by mouth once daily * Cholecalciferol (VITAMIN D3) 31911 units Take 10,000 Units by mouth once daily * USTELL 120 MG capsule(Started 04/10/2019) Take 120 mg by mouth 3 times daily as needed 4 refills by 04/09/2020 * ibuprofen (MOTRIN) 600 MG tablet(Started 12/12/2019) Take 1 tablet by mouth every 6 hours as needed for Pain * onabotulinumtoxin A (BOTOX) 200 units injection(Started 12/24/2019) Inject 200 Units into muscle Every 90 days Reasons: Muscle Spasticity 1 refill by 12/23/2020 * Elagolix Sodium (ORILISSA) 150 MG TABS(Started 12/24/2019) Take 1 tablet by mouth once daily 5 refills by 12/23/2020 * gabapentin (NEURONTIN) 300 MG capsule(Started 07/04/2020) Take 1 capsule by mouth once daily in the morning 2 refills by 07/04/2021 * gabapentin (NEURONTIN) 600 MG tablet(Started 08/21/2020) Take 1 (one) tablet by mouth at bedtime 3 refills by 08/21/2021 Active Problems Problem Noted Date Diagnosed Date H/O: hysterectomy 08/17/2017 Endometriosis 07/06/2017 Interstitial cystitis 08/09/2016 Bladder pain 08/02/2016 Chronic constipation 08/02/2016 Chronic interstitial cystitis 08/02/2016 Chronic pelvic pain in female 08/02/2016 Dyschezia 08/02/2016 Dyspareunia in female 08/02/2016 Dysuria 08/02/2016 Myalgia of pelvic floor 08/02/2016 Urinary frequency 08/02/2016 Urinary urgency 08/02/2016 GERD (gastroesophageal reflux disease) 6 Hypothyroid 03/12/2015 Gastroesophageal reflux disease 12/12/2013 Vulvar vestibulitis 01/27/2011 Dyspepsia Abdominal bloating Pudendal neuralgia Immunizations * INFLUENZA VACCINE(Given 10/19/2019) * INFLUENZA VACCINE, QUADR. (FLUZONE; FLULAVAL; FLUARIX; AFLURIA QUADRIVALENT; 6MO+), 0.5 ML (IIV4)(Given 12/04/2018, 12/04/2017) * TDAP (7yrs+)(Given 08/21/2019) Social History Tobacco Use Types Packs/Day Years [...] Comments Blood Pressure 108/62 02/26/2020 8:33 AM EMBEDDED SOFTWARE PROGRAMMER Pulse 67 12/12/2019 5:49 PM EMBEDDED SOFTWARE PROGRAMMER Temperature 36.3 C (97.3 F) 12/24/2019 8:24 AM EMBEDDED SOFTWARE PROGRAMMER Respiratory Rate 16 12/12/2019 5:26 PM EMBEDDED SOFTWARE PROGRAMMER Oxygen Saturation 100% 12/12/2019 5:26 PM EMBEDDED SOFTWARE PROGRAMMER Inhaled Oxygen Concentration - - Weight 65.9 kg (145 lb 3.2 oz) 02/26/2020 8:33 A M EMBEDDED SOFTWARE PROGRAMMER Height 154.9 cm (5' 1 ) 02/26/2020 8:33 AM EMBEDDED SOFTWARE PROGRAMMER Body Mass Index 27.44 02/26/2020 8:33 AM EMBEDDED SOFTWARE PROGRAMMER Procedures * CARDIAC RHYTHM STRIP ORDER(Performed 12/14/2019) * INJECTION MUSCLE(S)/TRIGGER POINT(Performed 12/12/2019) Performed for Diagnosis unknown * CT IRRIGATION OF BLADDER(Performed 12/12/2018) Performed for Chronic interstitial cystitis * CULTURE URINE(Performed 11/27/2018) * CT IRRIGATION OF BLADDER(Performed 11/27/2018) Performed for Chronic interstitial cystitis * URINALYSIS AUTO - POINT OF CARE (AMB) SLU(Performed 11/20/2018) Performed for Urgency of urination, Dysuria * CT IRRIGATION OF BLADDER(Performed 11/13/2018) Performed for Chronic interstitial cystitis * CT IRRIGATION OF BLADDER(Performed 11/06/2018) Performed for Chronic interstitial cystitis * CT IRRIGATION OF BLADDER(Performed 10/30/2018) Performed for Chronic interstitial cystitis * CT IRRIGATION OF BLADDER(Performed 10/16/2018) Performed for Chronic interstitial cystitis * CT IRRIGATION OF BLADDER(Performed 10/02/2018) Performed for Chronic interstitial cystitis * URINALYSIS AUTO - POINT OF CARE (AMB) [facility]U(Performed 10/02/2018) Performed for Chronic interstitial cystitis, Urgency of urination * CT IRRIGATION OF BLADDER(Performed 09/25/2018) Performed for Chronic interstitial cystitis * CULTURE URINE(Performed 09/19/2018) Performed for Acute cystitis without hematuria * LAB RESULTS ORDER(Performed 06/15/2018) * PAIN MANAGEMENT PROCEDURE TIME(Performed 11/08/2017) Performed for Nerve pain * MRI LUMBAR SPINE WO CONTRAST(Performed 10/17/2017) Performed for Pudendal neuralgia, Lumbosacral radiculopathy * XR LUMBAR SPINE 4VW OR MORE(Performed 09/23/2017) Performed for Pudendal neuralgia, Lumbosacral radiculopathy * CULTURE URINE(Performed 07/22/2017) * CULTURE URINE(Performed 07/22/2017) Performed for Endometriosis * APHERESIS/TRANSFUSION ORDER(Performed 07/08/2017) * CARDIAC RHYTHM STRIP ORDER(Performed 07/08/2017) * PATHOLOGY TISSUE EXAM (STL)(Performed 07/06/2017) Performed for Chronic pelvic pain in female, Dyspareunia in female, Dyschezia, Endometriosis * ENDOTRACHEAL TUBE NOTE(Performed 07/06/2017) * CYSTOSCOPY WITH HYDRODISTENSION BLADDER(Performed 07/06/2017) Performed for Chronic pelvic pain in female, Dyspareunia in female, Dyschezia, Endometriosis * LAPAROSCOPIC TOTAL HYSTERECTOMY (TLH)(Performed 07/06/2017) Performed for Chronic pelvic pain in female, Dyspareunia in female, Dyschezia, Endometriosis * LAPAROSCOPIC FULGURATION/EXCISION LESION PELVIC/OVARY (LASER)(Performed 07/06/2017) Performed for Chronic pelvic pain in female, Dyspareunia in female, Dyschezia, Endometriosis * HCG URINE QUALITATIVE - POCT (IP) INTERFACED(Performed 07/06/2017) * HCG URINE QUAL POCT NOTIFICATION(Performed 07/06/2017) Performed for Preop examination * TYPE + SCREEN PANEL(Performed 06/27/2017) Performed for Pre-op testing * CBC W AUTO DIFFERENTIAL(Performed 06/27/2017) Performed for Pre-op testing * BLOOD TYPE VERIFICATION(Performed 06/27/2017) * CULTURE YEAST WITH DIRECT FLUORESCENT MOOK(Performed 12/24/2016) * CHLAMYDIA+GC LALA PAP VIAL(Performed 12/24/2016) * CHLAMYDIA+GC LALA PAP VIAL(Performed 12/14/2016) * LAB HISTORICAL RESULTS-ONBASE(Performed 12/10/2016) * WET PREP - POINT OF CARE (AMB) SLU(Performed 12/09/2016) * PATHOLOGY TISSUE EXAM (STL)(Performed 10/04/2016) Performed for Gastroesophageal reflux disease, esophagitis presence not specified * CULTURE DUODENAL ASPIRATE QUANT(Performed 10/04/2016) Performed for Gastroesophageal reflux disease, esophagitis presence not specified * EGD(Performed 10/04/2016) * ESOPHAGOGASTRODUODENOSCOPY (EGD) BIOPSY(Performed 10/04/2016) Performed for Gastroesophageal reflux disease, esophagitis presence not specified * ESOPHAGOGASTRODUODENOSCOPY WITH SMALL BOWEL APSIRATE(Performed 10/04/2016) Performed for Gastroesophageal reflux disease, esophagitis presence not specified * ESOPHAGOGASTRODUODENOSCOPY (EGD) DIAGNOSTIC(Performed 10/04/2016) Performed for Gastroesophageal reflux disease, esophagitis presence not specified * HCG URINE QUALITATIVE - POINT OF CARE(Performed 10/04/2016) * URINALYSIS W/MICROSCOPIC NO CULTURE(Performed 07/14/2016) * CULTURE URINE(Performed 07/14/2016) * LAB HISTORICAL RESULTS-ONBASE(Performed 07/13/2016) * DERMATOPATHOLOGY(Performed 01/29/2011) * HCG URINE QUALITATIVE - POINT OF CARE(Performed 07/22/2010) * CULTURE FUNGUS OTHER+FUNGUS SMEAR(Performed 06/30/2010) * GTT 3 SPECIMENS(Performed 06/02/2010) * LAB HISTORICAL RESULTS-ONBASE(Performed 06/02/2010) * CULTURE URINE(Performed 06/01/2010) * URINALYSIS - POINT OF CARE (AMB) SLU(Performed 06/01/2010) * PH FLUID - POCT (AMB) SLU(Performed 02/07/1998) * FUNGUS MOOK - POINT OF CARE (AMB) SLU(Performed 02/07/1998) * WET PREP - POINT OF CARE (AMB) SLU(Performed 02/07/1998) * FUNGUS MOOK - POINT OF CARE (AMB) SLU(Performed 02/07/1998) * PH FLUID - POCT (AMB) SLU(Performed 02/07/1998) * WET PREP - POINT OF CARE (AMB) SLU(Performed 02/07/1998) Results * CARDIAC RHYTHM STRIP ORDER (12/14/2019 9:49 PM EMBEDDED SOFTWARE PROGRAMMER) Only the most recent of2 resultswithin the time period is included. Narrative 12/14/2019 9:49 PM EMBEDDED SOFTWARE PROGRAMMER Ordered by an unspecified provider. Scanned Document CARDIAC SERVICES ORD ERABLES * CT IRRIGATION OF BLADDER (12/12/2018 10:06 AM EMBEDDED SOFTWARE PROGRAMMER) Shayy Mcduffie MD - 12/12/2018 10:06 AM EMBEDDED SOFTWARE PROGRAMMER Shayy Askew MD 12/12/2018 7:27 PM Bladder Rescue Instillation Procedure Note: Indication: Interstitial cystitis, painful bladder syndrome, urinary frequency. CPT: 06851 Procedure: The procedure was discussed with the patient and verbal consent was obtained. The patient was placed in a dorsal lithotomy position. Her urethra was visualized and prepped with Betadine (unless she was allergic in which case Hibiclens was used). A 12F catheter was introduced under aseptic conditions. The bladder was then instilled slowly with a solution containin cc 0.25% Marcaine 10,000 units Heparin The catheter was then removed, and the patient was instructed to retain the solution for at least 30 minutes. She tolerated the procedure well. A follow up visit for repeat bladder instillation was scheduled for 1 week(s). Shayy Askew MD PROCEDURE/MINOR SURG ICAL ORDERABLES * CULTURE URINE (11/27/2018 9:37 AM CDT) Only the most recent of6 resultswithin the time period is included. Pathologist [facility] Comment: CULTURE, URINE, ROUTINE MICRO NUMBER: [id number] TEST STATUS: FINAL SPECIMEN SOURCE: URINE SPECIMEN QUALITY: ADEQUATE RESULT: No Growth Test Performed at: [id number] [id number] WELLINGTON REED MD 11/27/2018 9:37 AM CDT 11/29/2018 4:27 AM CDT Shayy Askew MD LAB - MICROBIOLOGY O RDERABLES [address] [address] * CT IRRIGATION OF BLADDER (11/27/2018 8:57 AM CDT) Shayy Mcduffie MD - 11/27/2018 8:57 AM CDT Shayy Askew MD 11/27/2018 9:52 AM Bladder Rescue Instillation Procedure Note: Indication: Interstitial cystitis, painful bladder syndrome, urinary frequency. CPT: 35358 Procedure: The procedure was discussed with the patient and verbal consent was obtained. The patient was placed in a dorsal lithotomy position. Her urethra was visualized and prepped with Betadine (unless she was allergic in which case Hibiclens was used). A 12F catheter was introduced under aseptic conditions. The bladder was then instilled slowly with a solution containin cc 0.25% Marcaine 10,000 units Heparin The catheter was then removed, and the patient was instructed to retain the solution for at least 30 minutes. She tolerated the procedure well. A follow up visit for repeat bladder instillation was scheduled for 1-2 week(s). Shayy Askew MD PROCEDURE/MINOR SURG ICAL ORDERABLES * URINALYSIS AUTO - POINT OF CARE (AMB) [facility]U (11/20/2018) Only the most recent of2 resultswithin the time period is included. Glucose UA n Bilirubin UA POCT n Ketones UA POCT n Specific [place] UA 1.015 Blood Urine POCT n pH UA 8.0 Protein UA n Urobilinogen UA n Nitrite UA n WBC UA n Urine URINE / Unknown 11/20/2018 Shayy Askew MD LAB - POINT OF CARE ORDERABLES * CT IRRIGATION OF BLADDER (11/13/2018 8:56 PM CDT) Narrative Shayy Askew MD - 11/13/2018 8:56 PM CDT Shayy Askew MD 11/13/2018 8:57 PM Bladder Rescue Instillation Procedure Note: Indication: Interstitial cystitis, painful bladder syndrome, urinary frequency. CPT: 01778 Procedure: The procedure was discussed with the patient and verbal consent was obtained. The patient was placed in a dorsal lithotomy position. Her urethra was visualized and prepped with Betadine (unless she was allergic in which case Hibiclens was used). A 12F catheter was introduced under aseptic conditions. The bladder was then instilled slowly with a solution containin cc 0.5% Bupivacaine 10,000 units Heparin The catheter was then removed, and the patient was instructed to retain the solution for at least 30 minutes. She tolerated the procedure well. A follow up visit for repeat bladder instillation was scheduled for 1 week(s). Shayy Askew MD PROCEDURE/MINOR SURG ICAL ORDERABLES * CT IRRIGATION OF BLADDER (11/06/2018 9:55 AM CDT) Shayy Mcduffie MD - 11/06/2018 9:55 AM CDT Shayy Askew MD 11/06/2018 10:03 AM Bladder Rescue Instillation Procedure Note: Indication: Interstitial cystitis, painful bladder syndrome, urinary frequency. CPT: 90388 Procedure: The procedure was discussed with the patient and verbal consent was obtained. The patient was placed in a dorsal lithotomy position. Her urethra was visualized and prepped with Betadine (unless she was allergic in which case Hibiclens was used). A 12F catheter was introduced under aseptic conditions. The bladder was then instilled slowly with a solution containin cc 0.25% Marcaine 10,000 units Heparin The catheter was then removed, and the patient was instructed to retain the solution for at least 30 minutes. She tolerated the procedure well. A follow up visit for repeat bladder instillation was scheduled for 1 week(s). Shayy Askew MD PROCEDURE/MINOR SURG ICAL ORDERABLES * CT IRRIGATION OF BLADDER (10/30/2018 10:55 AM CDT) Shayy Mcduffie MD - 10/30/2018 10:55 AM CDT Shayy Askew MD 10/30/2018 10:55 AM Bladder Rescue Instillation Procedure Note: Indication: Interstitial cystitis, painful bladder syndrome, urinary frequency. CPT: 63766 Procedure: The procedure was discussed with the patient and verbal consent was obtained. The patient was placed in a dorsal lithotomy position. Her urethra was visualized and prepped with Betadine (unless she was allergic in which case Hibiclens was used). A 12F catheter was introduced under aseptic conditions. The bladder was then instilled slowly with a solution containin cc 0.75% Bupivacaine 10,000 units Heparin The catheter was then removed, and the patient was instructed to retain the solution for at least 30 minutes. She tolerated the procedure well. A follow up visit for repeat bladder instillation was scheduled for 1 week(s). Shayy Askew MD PROCEDURE/MINOR SURG ICAL ORDERABLES * CT IRRIGATION OF BLADDER (10/16/2018 10:03 AM CDT) Shayy Mcduffie MD - 10/16/2018 10:03 AM CDT Shayy Askew MD 10/16/2018 10:09 AM Bladder Rescue Instillation Procedure Note: Indication: Interstitial cystitis, painful bladder syndrome, urinary frequency. CPT: 17565 Procedure: The procedure was discussed with the patient and verbal consent was obtained. The patient was placed in a dorsal lithotomy position. Her urethra was visualized and prepped with Betadine (unless she was allergic in which case Hibiclens was used). A 12F catheter was introduced under aseptic conditions. The bladder was then instilled slowly with a solution containin cc 0.5% Ropivacaine 10,000 units Heparin The catheter was then removed, and the patient was instructed to retain the solution for at least 30 minutes. She tolerated the procedure well. A follow up visit for repeat bladder instillation was scheduled for 1 week(s). Shayy Askew MD PROCEDURE/MINOR SURG ICAL ORDERABLES * CT IRRIGATION OF BLADDER (10/02/2018 10:46 AM CDT) Shayy Mcduffie MD - 10/02/2018 10:46 AM CDT Shayy Askew MD 10/02/2018 11:13 AM Bladder Rescue Instillation Procedure Note: Indication: Interstitial cystitis, painful bladder syndrome, urinary frequency. CPT: 04758 Procedure: The procedure was discussed with the patient and verbal consent was obtained. The patient was placed in a dorsal lithotomy position. Her urethra was visualized and prepped with Betadine (unless she was allergic in which case Hibiclens was used). A 12F catheter was introduced under aseptic conditions. The bladder was then instilled slowly with a solution containin cc 0.5% Ropivacaine 10,000 units Heparin The catheter was then removed, and the patient was instructed to retain the solution for at least 30 minutes. She tolerated the procedure well. A follow up visit for repeat bladder instillation was scheduled for 2 week(s). Shayy Askew MD PROCEDURE/MINOR SURG ICAL ORDERABLES * CT IRRIGATION OF BLADDER (09/25/2018 2:56 PM CDT) Shayy Mcduffie MD - 09/25/2018 2:56 PM CDT Shayy Askew MD 09/25/2018 2:57 PM Bladder Rescue Instillation Procedure Note: Indication: Interstitial cystitis, painful bladder syndrome, urinary frequency. CPT: 02864 Procedure: The procedure was discussed with the patient and verbal consent was obtained. The patient was placed in a dorsal lithotomy position. Her urethra was visualized and prepped with Betadine (unless she was allergic in which case Hibiclens was used). A 12F catheter was introduced under aseptic conditions. The bladder was then instilled slowly with a solution containin cc 0.5% Ropivacaine 10,000 units Heparin The catheter was then removed, and the patient was instructed to retain the solution for at least 30 minutes. She tolerated the procedure well. A follow up visit for repeat bladder instillation was scheduled for 1 week(s). Shayy Askew MD PROCEDURE/MINOR SURG ICAL ORDERABLES * LAB RESULTS ORDER (06/15/2018 2:13 PM CDT) Narrative 06/15/2018 2:13 PM CDT Ordered by an unspecified provider. Scanned Document LAB - THERAPEUTIC DR GARRISON MONITORING ORDERABLES * PAIN MANAGEMENT PROCEDURE TIME (11/08/2017 3:13 PM CDT) Anatomical Region Laterality Modality Radio Fluoroscop y Narrative 11/16/2017 8:04 AM CDT Roque Montoya MD 11/16/2017 8:04 AM Bilateral pudental nerve block with ultrasound guidance and local anesthesia Right Pudendal Nerve Block. With ultrasound guidance and Flouroscopy Position:The patient is supine with right hip flexed. Prep: Chloro-prep to the upper medial thigh area Procedure: Sterile towels were used to create a sterile field at the area of the upper medial thigh The ultrasound probe was used with a medial approach to the pudendal nerve within alcock's canal, by identifying Adductor Eddie, Adductor longus, and Gracilis muscles. The Internal pudendal artery was identified by color and pulsation. Then skin wheal was formed at insertion sites with a 27 gauge needle and 1 % lidocaine 1-2 cc. Ultrasound guidance was used to to advance, in plane, a 22 guage 3.5 inch needle was advanced to the nerve. Under direct ultrasound visualization proper placement was confirmed with no intravascular or intraneural placement. Fluroscopic confirmation of depth and position along the ischium was done as well. The needle aspiration was negative. 5 cc of 0.25 % bupivacaine was injected . The patient tolerated the procedure well. Complications: None The patient tolerated the procedure well and there were no complications. The patient was taken to the recovery area. The patient remained in stable condition with no apparent complications. Vital signs stable. Injection site clean, dry, and intact. Post procedure instructions were given to the patient and a follow up appointment was confirmed. The patient was discharged with information on how to reach the clinic at anytime for questions or concerns. Pt ambulatory, denies complaints, DC to home. Roque Montoya MD DIAGNOSTIC IMAGING O RDERABLES * MRI LUMBAR SPINE WO CONTRAST (10/17/2017 11:54 AM CDT) Anatomical Region Laterality Modality Spine Magnetic Resonan ce Angiography 10/17/2017 1:10 PM CDT Impressions 10/17/2017 1:17 PM CDT Disc protrusion L4-5 on the left. Patent spinal canal. Edited by Ariane Call on 10/17/2017 1:15 PM Reading Radiologist: Popeye Suresh MD on 10/17/2017 at 1:17 PM Narrative 10/17/2017 1:17 PM CDT MRI LUMBAR SPINE. HISTORY: Mononeuropathy. Images are reviewed in sagittal and axial planes using T1 and T2-weighted sequences. Vertebral heights are normal. There is interspace height loss and dehydration at L4-5. No pathologic marrow replacement is seen. Lower thoracic spinal cord is unremarkable. At L1-L2, spinal canal and neural foramina are patent. At L2-L3, spinal canal and neural foramina are patent. At L3-L4, spinal canal and neural foramina are patent. At L4-L5, there is a mild disc bulge with a protrusion to left of midline narrowing the lateral recess and neural foramen on the left side. There is also facet and ligamentous hypertrophy. Spinal canal itself is widely patent. Procedure Note Popeye Suresh MD - 10/17/2017 MRI LUMBAR SPINE. HISTORY: Mononeuropathy. Images are reviewed in sagittal and axial planes using T1 and T2-weighted sequences. Vertebral heights are normal. There is interspace height loss and dehydration at L4-5. No pathologic marrow replacement is seen. Lower thoracic spinal cord is unremarkable. At L1-L2, spinal canal and neural foramina are patent. At L2-L3, spinal canal and neural foramina are patent. At L3-L4, spinal canal and neural foramina are patent. At L4-L5, there is a mild disc bulge with a protrusion to left of midline narrowing the lateral recess and neural foramen on the left side. There is also facet and ligamentous hypertrophy. Spinal canal itself is widely patent. IMPRESSION Disc protrusion L4-5 on the left. Patent spinal canal. Edited by Ariane Call on 10/17/2017 1:15 PM Reading Radiologist: Popeye Suresh MD on 10/17/2017 at 1:17 PM Roque Montoya MD MR ORDERABLES * XR LUMBAR SPINE 4VW OR MORE (09/23/2017 8:41 AM CDT) Anatomical Region Laterality Modality Spine Radiographic Tona ging 09/23/2017 9:01 AM CDT Impressions 09/23/2017 9:37 AM CDT Unremarkable study. Edited by Jessica Marks on 09/23/2017 9:28 AM Reading Radiologist: Popeye Suresh MD on 09/23/2017 at 9:37 AM Narrative 09/23/2017 9:37 AM CDT LUMBAR SPINE MULTIPLE VIEWS HISTORY: Back pain. AP, lateral and oblique views of the lumbosacral spine show normal vertebral heights and interspace heights. Alignment is maintained. There is no spondylolisthesis or spondylolysis. Procedure Note Popeye Suresh MD - 09/23/2017 LUMBAR SPINE MULTIPLE VIEWS HISTORY: Back pain. AP, lateral and oblique views of the lumbosacral spine show normal vertebral heights and interspace heights. Alignment is maintained. There is no spondylolisthesis or spondylolysis. IMPRESSION Unremarkable study. Edited by Jessica Marks on 09/23/2017 9:28 AM Reading Radiologist: Popeye Suresh MD on 09/23/2017 at 9:37 AM Roque Montoya MD DIAGNOSTIC IMAGING O RDERABLES * APHERESIS/TRANSFUSION ORDER (07/08/2017 10:15 PM CDT) Narrative 07/08/2017 10:15 PM CDT Ordered by an unspecified provider. Scanned Document NURSING - VITAL SIGN S AND ASSESSMENT * GROSS + MICRO EXAM (STL) (07/06/2017 12:37 PM CDT) Only the most recent of2 resultswithin the time period is included. Case Report Surgical Pathology Report Case: [id number] Authorizing Provider: Cliff Dennis Jr., MD Collected: 07/06/2017 12:37 PM Ordering Location: [facility] Received: 07/06/2017 02:51 PM Pathologist: Annita Riojas MD Specimens: A) - Fossa, RIGHT OVARIAN FOSSA B) - Ligament, RIGHT UTEROSACRAL LIGAMENT C) - [place] , RIGHT POSTERIOR CUL-DE-SAC D) - Ligament, LEFT UTEROSACRAL LIGAMENT E) - Fossa, LEFT OVARIAN FOSSA F) - [place] , Middle Anterior [place] Sac G) - Uterus w Tubes, Uterus, Cervix, Bilateral Fallopian Tubes 07/07/2017 3:16 PM CDT [facility] Final Diagnosis 1. Right ovarian fossa, biopsy: -- Endometriosis. 2. Right uterosacral ligament, biopsy: -- Negative for endometriosis. 3. Right posterior cul-de-sac, biopsy: -- Endometriosis. 4. Left uterosacral ligament, biopsy: -- Endometriosis. 5. Left ovarian fossa, biopsy: -- Negative for endometriosis. 6. Middle anterior cul-de-sac, biopsy: -- Endometriosis. 7. Uterus, cervix, bilateral fallopian tubes: -- Proliferative endometrium. -- Myometrium with no pathologic changes. -- Serosa with no pathologic changes. -- Cervix with no pathologic changes. -- Bilateral fallopian tubes with no pathologic changes. GM/me 07/07/2017 3:16 PM CDT [facility] Gross Description The specimens are received fixed in formalin in seven containers. All seven containers are labeled with the patient's name, Syed Ferguson. Specimen A, right ovarian fossa, consists of two irregularly-shaped portions of soft, purple-bliss membranous tissue measuring 0.9 x 0.9 x 0.3 cm in aggregate. The specimen is submitted in toto in cassette A1. Specimen B, right uterosacral ligament, consists of one fragment of rubbery, yellow-bliss tissue measuring 1.0 x 0.7 x 0.5 cm. The specimen is submitted in toto in cassette B1. Specimen C, right posterior cul-de-sac, consists of two irregularly-shaped portions of soft, yellow-pink fatty tissue measuring 2.0 x 1.7 x 0.4 cm in aggregate. The specimen is submitted in toto in cassette C1. Specimen D, left uterosacral ligament, consists of one irregularly-shaped portion of soft, pink-bliss tissue measuring 2.7 x 0.7 x 0.3 cm. The specimen is submitted in toto in cassette D1. Specimen E, left ovarian fossa, consists of three fragments of soft, pink-bliss tissue with an aggregate measurement of 0.8 x 0.5 x 0.3 cm. The specimen is submitted in toto in cassette E1. Specimen F, middle anterior cul-de-sac, consists of one irregularly-shaped portion of soft, pink-bliss membranous tissue measuring 2.0 x 1.3 x 0.5 cm. The specimen is submitted in toto in cassette F1. Specimen G, uterus, cervix, bilateral fallopian tubes and consists of a 57.3 g uterine cervical complex measuring 7.4 cm from fundus to cervix x 5.5 cm from cornu to cornu x 3.0 cm from anterior to posterior. The serosa is purple-pink, smooth and glistening. The cervix is purple-bliss and glistening and measures 3.1 x 2.7 cm with an eccentric, oval-shaped os measuring 0.6 cm in diameter. The cut surface through the cervix reveals rubbery, pink-white fibrous tissue. The uterus is bisected, revealing a 2.5 x 3.5 cm triangular-shaped endometrial cavity with pink-bliss and glistening endometrium measuring 0.2 cm in thickness. The cut surface through the uterus reveals pink-bliss, rubbery myometrium measuring 1.0 cm in thickness with no gross evidence of mass or tumor formation. The fallopian tubes are purple-pink and fimbriated and measure 6.0 cm in length x 0.6 cm in diameter and 5.5 cm in length x 0.6 cm in diameter. The cut surface reveals unremarkable pinpoint lumens. Horseshoer sections are submitted as follows: G1 - 12 o'clock cervix. G2 - 6 o'clock cervix. G3 and G4 - anterior endomyometrium. G5 and G6 - posterior endomyometrium. G7 and G8 - fallopian tubes. MR/ns 07/07/2017 3:16 PM T [facility] Microscopic Description There is evidence of a rare small endometrial glands with a scant amount of surrounding stroma seen in some of the biopsy samples. There is no evidence of glandular dysplasia, hyperplasia or malignancy. Sections of the uterus with cervix shows a normal cervix with no evidence of dysplasia or malignancy. The endometrium is proliferative in type and free of polyp formation or hyperplasia. The myometrium and serosa show no pathologic changes. Sections of both fallopian tubes show no pathologic changes. GM/me 07/07/2017 3:16 PM T [facility] Disclaimer All histochemical and/or immunohistochemical results are interpreted with controls that demonstrate appropriate staining reactions before reporting results. Note on use of immunocytochemistry reagents: This test was developed and its performance characteristic determined by [facility], Department of Laboratory Medicine. It has not been cleared or approved by the U.S. Food and Drug Administration (FDA). The FDA has determined that such clearance or approval is not necessary. The test is used for clinical purpose. It should not be regarded as investigational or for research. This laboratory is certified to perform high complexity testing. 07/07/2017 3:16 PM [facility] Embedded Images 07/07/2017 3:16 PM [facility] Pathology/Cytology MISCELLANEOUS SAMPLES / Unknown 07/06/2017 12:37 PM CDT 07/06/2017 2:51 PM CDT Miscellaneous samples (specimen) ENTIRE LIGAMENT / Unknown 07/06/2017 12:39 PM CDT 07/06/2017 2:51 PM CDT Miscellaneous samples (specimen) ENTIRE RECTOUTERINE POUCH / Unknown 07/06/2017 12:41 PM CDT 07/06/2017 2:51 PM CDT Miscellaneous samples (specimen) ENTIRE LIGAMENT / Unknown 07/06/2017 12:43 PM CDT 07/06/2017 2:51 PM CDT Miscellaneous samples (specimen) MISCELLANEOUS SAMPLES / Unknown 07/06/2017 12:49 PM CDT 07/06/2017 2:51 PM CDT Miscellaneous samples (specimen) ENTIRE RECTOUTERINE POUCH / Unknown 07/06/2017 1:01 PM CDT 07/06/2017 2:51 PM CDT Miscellaneous samples (specimen) UTERUS AND FALLOPIAN TUBES, CS / Unknown 07/06/2017 1:39 PM CDT 07/06/2017 2:51 PM CDT Cliff Dennis Jr., MD LAB - PATHOLOGY/ CYTOLOGY ORDERABLES Performing Organization Address [facility] Co de Phone Number [facility] [address] [place] [address] [phone] * HCG URINE QUALITATIVE - POCT (IP) INTERFACED (07/06/2017 9:18 AM CDT) HCG Qual Urine Negative Negative 07/06/2017 9:25 AM CDT [facility] Urine URINE / Unknown 07/06/2017 9 :18 AM CDT 07/06/2017 9:25 AM CDT Cliff Dennis Jr., MD LAB - POINT OF C ARE ORDERABLES Performing Organization Address [facility] Co de Phone Number [facility] [address] [place] [address] * HCG URINE QUAL POCT NOTIFICATION (07/06/2017 9:10 AM CDT) Comment Notification Label Only - See Separate Report 07/06/2017 11:00 AM CDT [facility] Urine URINE / Unknown 07/06/2017 9 :10 AM CDT 07/06/2017 9:10 AM CDT Selwyn Rizzo MD LAB - URINALYSIS O RDERABLES Performing Organization Address [facility] Co de Phone Number [facility] [address] [place] [address] [phone] * TYPE + SCREEN PANEL (06/27/2017 1:18 PM CDT) ABO A 06/27/2017 3:15 PM CDT [facility] Rh Type Negative 06/27/2017 3:15 PM CDT [facility] Comment:History checked. Antibody Screen Negative 06/27/2017 3:15 PM CDT [facility] Blood Bank BLOOD SPECIMEN / Unknown Venipuncture / Unknown 06/27/2017 1:18 PM CDT 06/27/2017 1:40 PM CDT Cliff Dennis Jr., MD LAB - BLOOD BANK ORDERABLES [facility] [address] [phone] * CBC W AUTO DIFFERENTIAL (06/27/2017 1:18 PM CDT) WBC 7.2 4.4 - 10.7 x10E9/L 06/27/2017 1:48 PM CDT [facility] WBC Corrected x10E9/L 06/27/2017 1:48 PM CDT [facility] RBC 4.32 3.80 - 5.20 x10E12/L 06/27/2017 1:48 PM CDT [facility] Hemoglobin 13.3 12.0 - 15.6 gm/dL 06/27/2017 1:48 PM CDT [facility] Hematocrit 40.4 35.9 - 45.5 % 06/27/2017 1:48 PM CDT [facility] MCV 93.5 80.7 - 98.3 fl 06/27/2017 1:48 PM CDT [facility] MCH 30.8 26.7 - 34.0 pg 06/27/2017 1:48 PM CDT [facility] MCHC 32.9 30.8 - 35.9 gm/dL 06/27/2017 1:48 PM CDT [facility] Platelet Count 301 153 - 416 x10E9/L 06/27/2017 1:48 PM CDT [facility] RDW-CV 12.5 12.1 - 14.9 % 06/27/2017 1:48 PM CDT [facility] MPV 10.2 9.4 - 12.9 fl 06/27/2017 1:48 PM CDT [facility] Neutrophils % 54.6 44.0 - 73.0 % 06/27/2017 1:48 PM CDT [facility] Lymphocytes % 31.8 20.0 - 43.0 % 06/27/2017 1:48 PM CDT [facility] Monocytes % 9.2 5.0 - 13.0 % 06/27/2017 1:48 PM CDT [facility] Eosinophils % 3.1 0.0 - 6.0 % 06/27/2017 1:48 PM CDT [facility] Basophils % 1.0 0.0 - 2.0 % 06/27/2017 1:48 PM CDT [facility] Immature Granulocytes 0.3 0 - 1 % 06/27/2017 1:48 PM CDT [facility] Neutrophil Absolute 3.91 2.01 - 7.14 x10E9/L 06/27/2017 1:48 PM CDT [facility] Lymphocytes Absolute 2.28 1.07 - 3.94 x10E9/L 06/27/2017 1:48 PM CDT [facility] Monocytes Absolute 0.66 0.26 - 1.07 x10E9/L 06/27/2017 1:48 PM CDT [facility] Eosinophils Absolute 0.22 0 - 0.47 x10E9/L 06/27/2017 1:48 PM CDT [facility] Basophils Absolute 0.07 0 - 0.08 x10E9/L 06/27/2017 1:48 PM CDT [facility] Immature Granulocytes Absolute 0.02 0.00 - 0.06 x10E9/L 06/27/2017 1:48 PM CDT [facility] nRBC Auto 0 /100 WBC 06/27/2017 1:48 PM CDT [facility] Blood BLOOD SPECIMEN / Unknown Venipuncture / Unknown 06/27/2017 1:18 PM CDT 06/27/2017 1:40 PM CDT Cliff Dennis Jr., MD LAB - HEMATOLOGY ORDERABLES Performing Organization Address City/State/[facility] Co de Phone Number [facility] [address] [place] [address] * BLOOD TYPE VERIFICATION (06/27/2017 1:10 PM CDT) ABO A 06/27/2017 2:52 PM CDT [facility] Rh Type Negative 06/27/2017 2:52 PM CDT [facility] Blood Bank BLOOD SPECIMEN / Unknown Venipuncture / Unknown 06/27/2017 1:10 PM CDT 06/27/2017 2:21 PM CDT Cliff Dennis Jr., MD LAB - BLOOD BANK ORDERABLES Performing Organization Address [facility] Co de Phone Number [facility] [address] [phone] * CULTURE YEAST WITH DIRECT FLUORESCENT MOOK (12/24/2016 7:00 AM EMBEDDED SOFTWARE PROGRAMMER) Smear SEE NOTE [facility] Comment: CULTURE, YEAST, W/DIRECT FLUORESCENT MOOK MICRO NUMBER: [id number] TEST STATUS: FINAL SPECIMEN SOURCE: VAGINA SPECIMEN QUALITY: ADEQUATE SMEAR: No fungal elements seen. RESULT: No fungal growth at 2 Weeks NO COLLECTION DATE RECEIVED. WE HAVE USED THE DATE THE SPECIMEN WAS RECEIVED BY THIS LABORATORY THE COLLECTION DATE. IF THIS IS INCORRECT, PLEASE CONTACT CLIENT SERVICES. PHONE NUMBER: [phone] Test Performed at: [facility] [address] WELLINGTON REED MD Vaginal swab (specimen) 12/24/2016 7:00 AM EMBEDDED SOFTWARE PROGRAMMER 12/10/2016 1:45 AM CDT Narrative [facility]) - 12/24/2016 7:00 AM EMBEDDED SOFTWARE PROGRAMMER Please allow culture to grow for FOUR weeks before finalizing Please check for all ruel species including ruel glabrata Please check for sensitivities even for ruel albicans result Please check for sensitivities for these drugs: 1. 5-Flucytosine 2. Itraconazole 3. Fluconazole 4. Amphotericin B Specimen Type->Vaginal swab Marcie Pope APRN-[facility] LAB - ERVIN ROBIOLOGY ORDERABLES Performing Organization Address [facility] Co de Phone Number [facility] * CHLAMYDIA+GC LALA PAP VIAL (12/24/2016 7:00 AM EMBEDDED SOFTWARE PROGRAMMER) Only the most recent of2 resultswithin the time period is included. Chlamydia trachomatis RNA TMA NOT DETECTED NOT DETECTED [facility]) Neisseria gonorrhoeae RNA TMA NOT DETECTED NOT DETECTED [facility] See Note [facility] Comment: This test was performed using the APTIMA COMBO2 Assay ([employer] The analytical performance characteristics of this assay, when used to test SurePath specimens have been determined by [employer]. Test Performed at: [facility] [address] [place] [address] MARIYA MENSAH DO,MPH Vaginal swab (specimen) 12/24/2016 7:00 AM EMBEDDED SOFTWARE PROGRAMMER 12/10/2016 1:45 AM CDT Narrative [facility] - 12/24/2016 7:00 AM EMBEDDED SOFTWARE PROGRAMMER Specimen Type->Vaginal swab Marcie Pope APRN-[facility] LAB - ERVIN ROBIOLOGY ORDERABLES Performing Organization Address City/[facility]/ZIP Co de Phone Number [facility] * LAB HISTORICAL RESULTS-ONBASE (12/10/2016) Only the most recent of3 resultswithin the time period is included. 12/10/2016 Historical Provider MD LAB - CHEMISTRY O RDERABLES Performing Organization Address [facility] Co de Phone Number [place] [phone] [address] * WET PREP - POINT OF CARE (AMB) [facility] (12/09/2016) Only the most recent of3 resultswithin the time period is included. pH Wet Prep 5.5 [facility] Yeast Wet Prep + buds [facility] Trichomonas Wet Prep neg [facility] Bacteria Wet Prep neg [facility] Whiff Test neg [facility] 12/09/2016 Marcie LOWERY LAB - POI NT OF CARE ORDERABLES Performing Organization Address [facility]/ZIP Co de Phone Number [facility] * CULTURE DUODENAL ASPIRATE QUANT (10/04/2016 1:47 PM CDT) Culture No growth (<1,000 CFU/mL) ERVIN 10/07/2016 5:22 AM CDT [facility] Microbiology DUODENAL FLUID SPECIMEN / Unknown Collection / Unknown 10/04/2016 1:47 PM CDT 10/04/2016 2:47 PM CDT Danae Adams MD LAB - MICROBIOLOG Y ORDERABLES [facility] [address] [place], [place] [address], [facility] [phone] * EGD (10/04/2016 1:35 PM CDT) Report Endoscopy POC __ _ Patient Name: Syed Ferguson Procedure Date: 10/04/2016 1:35 PM Date of : 1980 Admit Type: Outpatient Age: 36 Gender: Female Attending MD: Danae Adams , __ _ Procedure: Upper GI endoscopy Indications: Abdominal bloating Providers: Danae Adams (Doctor), Michela Alvarez RN, Heidi Gallagher, Sliver Lap Machine Tender, Kaylah Stallworth (Fellow) Patient Profile: Dyspepsia, abdominal bloating Referring MD: Samir hernandez (Referring MD) Medicines: Monitored Anesthesia Care Complications: No immediate complications. __ _ Procedure: Pre-Anesthesia Assessment: - Prior to the procedure, a History and Physical was performed, and patient medications and allergies were reviewed. The patient's tolerance of previous anesthesia was also reviewed. The risks and benefits of the procedure and the sedation options and risks were discussed with the patient. All questions were answered, and informed consent was obtained. Prior Anticoagulants: The patient has taken no previous anticoagulant or antiplatelet agents. ASA Grade Assessment: II - A patient with mild systemic disease. After reviewing the risks and benefits, the patient was deemed in satisfactory condition to undergo the procedure. After obtaining informed consent, the endoscope was passed under direct vision. Throughout the procedure, the patient's blood pressure, pulse, and oxygen saturations were monitored continuously. The Endoscope was introduced through the mouth, and advanced to the second part of duodenum. The upper GI endoscopy was accomplished without difficulty. The patient tolerated the procedure well. Impression: - Normal stomach. Biopsied. - Normal first part of the duodenum and 2nd part of the duodenum. Fluid aspiration performed. Biopsied. Findings: Esophagogastric landmarks were identified: the Z-line was found at 36 cm, the gastroesophageal junction was found at 36 cm and the site of hiatal narrowing was found at 36 cm from the incisors. The entire examined stomach was normal. Biopsies were taken with a cold forceps for histology. The cardia and gastric fundus were normal on retroflexion. The first part of the duodenum and 2nd part of the duodenum were normal. Fluid aspiration for cytology was performed. Biopsies were taken with a cold forceps for histology. __ _ Recommendation: - Patient has a contact number available for emergencies. The signs and symptoms of potential delayed complications were discussed with the patient. Return to normal activities tomorrow. Written discharge instructions were provided to the patient. - Resume previous diet. - Continue present medications. - Await pathology results. Procedure Code(s): --- Professional --- 04641, Esophagogastroduode noscopy, flexible, transoral; with biopsy, single or multiple --- Technical --- 08393, Esophagogastroduode noscopy, flexible, transoral; with biopsy, single or multiple Diagnosis Code(s): --- Professional --- R14.0, Abdominal distension (gaseous) --- Technical --- R14.0, Abdominal distension (gaseous) CPT copyright 2015 [employer]. All rights reserved. The codes documented in this report are preliminary and upon daycare provider review may be revised to meet current compliance requirements. Attending Participation: I was present and participated during the entire procedure, including non-fowler portions. __ Danae Adams, 10/04/2016 2:12:45 PM Number of Addenda: 0 Note Initiated On: 10/04/2016 1:35 PM [facility] 10/04/2016 1:35 PM CDT Danae Adams MD GI PROCEDURE ORDE RABVITA Performing Organization Address [facility]/ZIP Co de Phone Number [facility] * HCG URINE QUALITATIVE - POINT OF CARE (IP) (10/04/2016 12:25 PM CDT) Only the most recent of2 resultswithin the time period is included. HCG Qual Urine Negative Negative [facility] POCT TESTING QC Verified Yes Yes [facility] POC T TESTING Urine URINE / Unknown 10/04/2016 1 2:25 PM CDT Danae Adams MD LAB - POINT OF CA RE ORDERABLES Performing Organization Address [facility] Co de Phone Number [facility] POCT TESTING [address] [phone] * (ABNORMAL) URINALYSIS W/MICROSCOPIC NO CULTURE (07/14/2016 7:00 PM CDT) Color UA ORANGE(A) YELLOW [facility]) Appearance CLEAR CLEAR [facility]) Specific [place] UA 1.007 1.001 - 1.035 [facility]) pH Urine 6.5 5.0 - 8.0 [facility]) Glucose UA NEGATIVE NEGATIVE [facility]) Bilirubin UA NEGATIVE NEGATIVE [facility] Ketone UA NEGATIVE NEGATIVE [facility] Blood UA TRACE(A) NEGATIVE [facility] Protein UA NEGATIVE NEGATIVE [facility]) Nitrite UA POSITIVE(A) NEGATIVE [facility] Leukocyte Esterase 1+(A) NEGATIVE [facility]) WBC Urine 0-5 < OR = 5 /HPF [facility] RBC Urine 0-2 < OR = 2 /HPF [facility]) Squamous Epithelial Cells UA NONE SEEN < OR = 5 /HPF [facility] Bacteria UA FEW(A) NONE SEEN /HPF [facility]) Hyaline Casts UA NONE SEEN NONE SEEN /LPF [facility]) Comment: Test Performed at: [facility] [address] WELLINGTON REED MD Urine specimen (specimen) URINE SPECIMEN COLLECTION, CATHETERIZED / Unknown 07/14/2016 7:00 PM CDT 07/14/2016 1:38 AM CDT Marcie Pope FLIGHT HOSTESS-[facility] LAB - URI NALYSIS ORDERABLES [facility] * PATHOLOGY TISSUE FOR DERMATOLOGY (01/29/2011 12:00 AM EMBEDDED SOFTWARE PROGRAMMER) Result CASE: [id number] PATIENT: SYED FERGUSON PATHOLOGIC DIAGNOSIS: Central low back: SEBORRHEIC KERATOSIS, IRRITATED CLINICAL DATA: SK. GROSS DESCRIPTION: Received is one formalin filled container labeled with the patient's name and designated central low back. The specimen consists of a shave biopsy measuring 9x8x1 mm. Jar 0. MICROSCOPIC DESCRIPTION: There is acanthosis consisting of fairly uniform squamous cells with eosinophilic cytoplasm and squamous eddies. Final Diagnosis performed by Irma Mckinnon M.D. Electronically signed 02/03/2011 2:41:29PM [facility] Comment: Performed at: Dermatopathology Laboratory [facility] Department of Dermatology [address] [place] [address], [address] [place] [address] Phone number: [phone] Toll Free: [phone] FAX: [phone] 01/29/2011 02/02/2011 Historical Provider LAB - PATHOLOGY/C YTOLOGY ORDERABLES [facility] [address] [facility]. 5th Floor Lab [address] [phone] * CULTURE FUNGUS OTHER+FUNGUS SMEAR (06/30/2010 8:31 AM CDT) Smear SEE NOTE [facility] Comment: CULTURE, FUNGUS W/SMEAR NOT HAIR, SKIN, BLOOD MICRO NUMBER: [id number] TEST STATUS: FINAL SPECIMEN SOURCE: VAGINA SPECIMEN QUALITY: ADEQUATE SMEAR: No fungal elements seen. RESULT: No fungal growth at 4 Weeks REPORT COMMENT: PLEASE CHECK FOR GLABRATA; PREFERRED LAB:->[facility] Test Performed at: [facility] [place] [address] [place] [address] MARIYA MENSAH DO Vaginal swab (specimen) ENTIRE VAGINA / Unknown 06/30/2010 8:31 AM CDT 06/30/2010 4:50 PM CDT Narrative [facility] - 07/27/2010 9:00 AM CDT Please check for glabrata Preferred Lab:->[facility] Dayana Montalvo APRN-[facility] LAB - MICRO BIOLOGY ORDERABLES Performing Organization Address [facility]/ZIP Co de Phone Number [facility] ([facility]) * GTT 3 SPECIMENS (06/02/2010 1:30 PM CDT) Glucose, Fasting 82 65 - 99 mg/dL [facility] Glucose, 1/2 hour NOT AVAIL. [facility] (BEAKER) Comment:Test not performed Glucose, 1 hour 81 65 - 199 mg/dL [facility] ([facility]) Glucose, 1 1/2 hour NOT AVAIL. [facility] ([facility]) Comment:Test not performed Glucose, 2 hour 88 65 - 139 mg/dL [facility] ([facility]) Glucose, 3 hour NOT AVAIL. [facility] ([facility]) Comment:Test not performed Glucose, 4 hour NOT AVAIL. [facility] ([facility]) Comment:Test not performed Glucose, 5 hour NOT AVAIL. [facility] ([facility]) Comment:Test not performed Glucose, 6 hour NOT AVAIL. [facility] ([facility]) Comment:Test not performed 06/02/2010 1:30 PM CDT 06/02/2010 5:37 PM CDT Narrative [facility] - 06/03/2010 8:24 AM CDT Performed at: [address] - [address] [id number] [place] Turner: Shelley Keane MD, Phone: [phone] Additional Result Information GLUCOSE, 1/2 HOUR: RESULT NOT AVAILABLE GLUCOSE, 1 1/2 HOUR: RESULT NOT AVAILABLE GLUCOSE, 3 HOUR: RESULT NOT AVAILABLE GLUCOSE, 4 HOUR: RESULT NOT AVAILABLE GLUCOSE, 5 HOUR: RESULT NOT AVAILABLE GLUCOSE, 6 HOUR: RESULT NOT AVAILABLE Dom Soto MD LAB - CHEMISTRY [facility]LEX [facility]) * URINALYSIS - POINT OF CARE (AMB) [facility] (06/01/2010 9:34 AM CDT) Glucose UA neg [facility] Bilirubin UA POCT neg [facility] Ketones UA POCT neg [facility] Specific [place] UA 1,000 [facility] Blood Urine POCT neg [facility] pH UA neg [facility] Protein UA neg [facility] Urobilinogen UA neg [facility] Nitrite UA neg [facility] WBC UA neg [facility] Urine specimen (specimen) 06/01/2010 9:34 AM CDT Dom Soto MD LAB - POINT OF CARE ORDERABLES [facility] * PH FLUID - POCT (AMB) [facility] (02/07/1998 12:00 AM EMBEDDED SOFTWARE PROGRAMMER) Only the most recent of2 resultswithin the time period is included. pH Vaginal 4.5 [facility] Vaginal swab (specimen) 02/07/1998 Dayana Montalvo APRN-[facility] LAB - POINT OF CARE ORDERABLES Performing Organization Address City/[facility]/ZIP Co de Phone Number [facility] * FUNGUS MOOK - POINT OF CARE (AMB) [facility] (02/07/1998 12:00 AM EMBEDDED SOFTWARE PROGRAMMER) Only the most recent of2 resultswithin the time period is included. MOOK Prep neg [facility] Fluid specimen (specimen) 02/07/1998 Dayana Montalvo APRN-[facility] LAB - POINT OF CARE ORDERABLES [facility] Care Teams Critical Care Clinical Nurse Specialist Relationship Specialty Start Date End Date Klaudia Rolle MD PCP - General Family Medicine 09/23/17
--- OUTSIDE RECORDS SUMMARY | 2024-03-15 11:58 | XMS_ITS | Encounter Summary ---
Author Organization [facility] Address [address] [place] [address] Care Team Providers Care Lead Shipper Name Role Phone Unknown, Provider Primary Care Provider Klaudia Adame MD Primary Care Provider [phone] Reason for Visit * Reason Onset Date Comments Refill Request 05/27/2017 Encounter Details Date Type Department Care Team (Late st Contact Info) Description 05/27/2017 Telephone [facility] [address] [place] [address] Marcie Ppoe, ASSOCIATE PROFESSOR OF MUSIC-TUNNEL MAN [address] [place] [address] Refill Request Social History Tobacco Use Types Packs/Day Years Used Date Smoking Tobacco: Never Smokeless Tobacco: Never Alcohol Use Standard Drinks/Week Comments No 0 (1 standard drink = 0.6 oz pur e alcohol) RARE Sex and Gender Information Value Date Recorded Sex Assigned at Not on file Gender Identity Not on file Sexual Orientation Not on file documented as of this encounter Miscellaneous Notes * Telephone Encounter - Ephraim Ulrich RN - 05/31/2017 4:25 PM CDT LM on her VM re: Dayana is not back until 08/15. Marcie really wants you to see someone sooner than later and Dr. Concepcion has openings. She and Dayana are partners and think exactly alike. Please cb and ask for me. * Telephone Encounter - Edward Pimentel - 05/31/2017 3:32 PM CDT PT CALLED IN STATING SHE CANNOT DO THE APPOINTMENT OFFERED BY EPHRAIM BECAUSE SHE HAS HER WORK SCHEDULE MADE FOR THE NEXT 2 WEEKS. WOULD LIKE TO KNOW IF SHE CAN SEE DR. MURPHY AFTER THAT OR WHEN SHE RETURNS FROM LEAVE? CALLBACK# [phone] * Telephone Encounter - Ephraim Ulrich RN - 05/30/2017 4:33 PM CDT JARROD on her personal VM re: sorry about earlier message, but we can't offer that appt. There's a computer glitch and there is actually a pt in the time slot. NEW APPT TIME: Tuesday, 06/03, at 930 at our [place] office. Please come to the office 30 early to fill out new pt paperwork. * Telephone Encounter - Ephraim Ulrich RN - 05/30/2017 9:55 AM CDT JARROD on pt's VM re: Dayana would like to see you on , 06/02, if you can make that. Please call us back and let us know. * Telephone Encounter - Dayana Montalvo APRN-CNP - 05/30/2017 8:33 AM CDT Ephraim, What about at 11:10? There is a return pt in that slot but will make it work. * Telephone Encounter - Ephraim Ulrich RN - 05/27/2017 4:03 PM CDT Pt made aware of Marcie's message. She would like to try to see Dayana again. Grateful for Diflucan. I will reach out to Dayana for possible appt and call her back once I hear back. * Telephone Encounter - Marcie Pope APRN-CNP - 05/27/2017 3:32 PM CDT Pat Roberson is a 37 y.o. female with history of chronic pelvic pain, IC, pelvic myalgia, dyspareunia, Vestib-vulvar. C/O recurrent yeast infection. Last yeast infection 04/2017 Given diflucan. Requesting Diflucan again today. Has upcoming procedure with Dr. Dennis 07/06/2017. Last two yeast cultures in 2017 both negative prelim & final reports. Used to see vulvar clinic for vestib. On Gabapentin. Was gradually working her way up to higher dosage. Usually compliant with VCG's. Tell her will give her Diflucan 200 x 3 dose routine this time. But must make appt with vulvar ladies either before or after her procedure with Jeannie as there may be another issue that needs to be addressed. In addition they can check up on her Gabapentin. Ensure VCG use. * Telephone Encounter - Maria G Dunaway - 05/27/2017 9:26 AM CDT Patient stated she spoke with a nurse on 05/24/17 about getting her prescription filled for medication Dulfcan. Patient stated she has checked with her pharmacy several times and there is still no prescription called into [facility] [phone]. documented in this encounter Plan of Treatment Not on file documented as of this encounter Visit Diagnoses Diagnosis Vaginal irritation- Primary Unspecified noninflammatory disorder of vagina Vaginal itching Pruritus of genital organs documented in this encounter Care Teams Lead Shipper Relationship Specialty Start Date End Date Unknown, Provider PCP - General 06/22/17 09/22/17 Klaudia Rolle MD PCP - General Family Medicine 09/23/17 documented as of this encounter
--- OUTSIDE RECORDS SUMMARY | 2024-03-15 12:02 | XMS_ITS | Clinical Summary ---
Author Organization [facility] Address [address] [place] [id number] Phone [email or web address] Care Team Providers Care Communications Tower Technician Name Role Phone Unavailable Primary Care Provider Unavailabl e Social History Tobacco Use Types Packs/Day Years Used Date Smoking Tobacco: Never Assessed Intimate Partner Violence Answer Date R ecorded Insults You Not on file 02/20/2021 Threatens You Not on file 02/20/2021 Screams at You Not on file 02/20/2021 Physically Hurt Not on file 02/20/2021 Intimate Partner Violence Score Not on file 02/20/2021 Stress Answer Date Recorded Stress in your Life Not on file 12/16/2023 Dealing with Stress 3 12/16/2023 Comments Unknown Sex and Gender Information Value Date Recorded Sex Assigned at Not on file 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
[2024-03-15 12:11] VITALS: BP 105/56; PULSE 76; RESP 16; TEMP 36.3; O2SAT 100
--- NOTE | 2024-03-15 13:18 | ED_ITS ---
HPI - Eye Problem General Chief complaint: Eye Problems Stated complaint: Right Eye Problem Source: patient Mode of arrival: ambulatory Limitations: no limitations History of Present Illness HPI Narrative: 43-year-old female presented for complaint of right eye pain with a bump intermittently over the past few months. She endorses 4 days ago she noted a bump to the eyelid which is now resolved. Says symptoms are better but also endorses blurred vision and itching. Has noted drainage to the eye in the morning. states she had a bump over one month ago which also resolved on its own. Pt is concerned for debris. chief complaint: eye pain Related Data Home Medications ?Medication ?Instructions ?Recorded ?Confirmed ?Last Taken ?Type aloe vera 25 mg capsule 25 mg PO DAILY 05/11/19 03/15/24 Unknown History duloxetine 20 mg capsule,delayed 20 mg PO BID 05/11/19 05/11/19 Unknown History release gabapentin 600 mg tablet 600 mg PO HS 05/11/19 03/15/24 Unknown History levothyroxine 50 mcg tablet 50 mcg PO DAILY 05/11/19 03/15/24 Unknown History pantoprazole 40 mg tablet,delayed 40 mg PO HS 05/11/19 03/15/24 Unknown History release hydroxyzine HCl 25 mg tablet mg 03/15/24 Unknown History Allergies Allergy/AdvReac Type Severity Reaction Status Date / Time Penicillins AdvReac Unknown Vomiting Verified 03/15/24 12:33 Review of Systems Review of Systems: CONSTITUTIONAL: Denies body aches, fever, chills EYES:Endorses swelling, redness and pain with FB sensation to right eye ENT: Denies rhinorrhea, congestion, sore throat, or otalgia. CARDIOVASCULAR: Denies chest pain, palpitations RESPIRATORY: Denies cough or dyspnea. GASTROINTESTINAL: Denies abdominal pain, nausea, vomiting, or diarrhea. SKIN: Denies rash, itching, or wounds. MUSCULOSKELETAL: Denies back pain, joint pain, or myalgia. NEUROLOGIC: Denies headache, numbness, tingling, or weakness. All systems reviewed & are unremarkable except as noted in HPI and below PMFSH Family History Family History Father Hypertension Mother Hypertension Social History Social History Smoking status: Never smoker Alcohol intake: never Comments At time of signature, I have reviewed and agree with nursing past medical, surgical, social and family history unless otherwise noted. Please see nursing chart for further information. There is no relevant family history pertinent to the presenting complaint Exam Narrative: GENERAL: Well-appearing HEAD: Normocephalic, atraumatic. EYES: mild right conjunctival injection, No eye lid swelling/redness or stye noted. PERRLA. EOMI. Lid eversion shows no FB. Reports tenderness with lid eversion. no corneal abrasion noted with Wood's lamp exam ENT: Mucous membranes pink and moist. No rhinorrhea. TMs normal bilaterally. Throat normal. Uvula midline. SKIN: Warm, dry, no rash. Normal skin turgor. NEURO: No focal deficits. Alert and oriented x3 PSYCH: Normal affect. Course Course Emergency Course: Patient is aware of diagnosis, understands and agrees to treatment plan. Anticipatory guidance given. Patient agrees to follow-up as directed and is aware of reasons to seek care at the emergency department. Portions of this record may have been created with voice recognition software Level of Care: Express Care Visit Vital Signs Vital signs: Vital Signs Temperature 97.4 F L 03/15/24 12:11 Pulse Rate 76 03/15/24 12:11 Respiratory Rate 16 03/15/24 12:11 Blood Pressure 105/56 L 03/15/24 12:11 Pulse Oximetry 100 03/15/24 12:11 Oxygen Delivery Room Air 03/15/24 12:11 Temperature 97.4 F L 03/15/24 12:11 Pulse Rate 76 03/15/24 12:11 Respiratory Rate 16 03/15/24 12:11 Blood Pressure 105/56 L 03/15/24 12:11 Pulse Oximetry 100 03/15/24 12:11 Oxygen Delivery Room Air 03/15/24 12:11 Procedures FB Removal Eye Foreign Body #1: Location: eye (R) Topical anesthetic used: tetracaine Evidence of corneal penetration: No Procedure performed under: other ( Wood's lamp) Patient tolerated procedure: well and no complications Foreign Body Removal Narrative: right Eye was anesthetized with 1 drop of tetracaine and anesthesia was achieved. Lid was everted and examined for foreign body. No foreign body, corneal abrasion, or ulceration identified with Juárez lamp. The eye was flushed with eye wash. Pt tolerated procedure well. MDM - Eye Problem MDM Narrative Medical decision making narrative: Discussed physical exam findings most c/w stye vs conjunctivitis, advised close fu with ophtho. Advised supportive measures and signs/symptoms to go to the ER. Pt is appropriate for outpt treatment and f/u. Differential Diagnosis Differential diagnosis: Likely corneal abrasion, conjunctivitis, acute iritis, periorbital cellulitis, subconjunctival hemorrhage, corneal ulcer and other Discharge Plan Discharge Clinical Impression: Bacterial conjunctivitis Patient Disposition: Home, Self-Care Condition: Stable Instructions: Antibiotic Form, Stye (ED), Conjunctivitis (ED) Additional Instructions: Avoid touching or rubbing your eye. Use over the counter lubricating eye drops as needed for irritation Use a warm or cool washcloth on your eye for comfort Use eyedrops as directed - you are contagious for 24 hours after starting the antibiotic Practice good handwashing and hygiene to prevent spread of infection You may take Tylenol or ibuprofen for pain for the bump: Apply warm, moist compresses on the affected area frequently (for 5 to 10 minutes three to five times per day) in order to help with drainage. Massage and gentle wiping of the affected eyelid after the warm compress can also help with drainage. You can use baby shampoo to wash the eye area Avoid wearing eye makeup or contact lenses Take medication as directed. Follow-up with PCP or leather splitter if condition is not improving in 2-3days. Go to the emergency room if you have severe pain or pressure behind your eye, difficulty seeing, or other severe symptoms [facility] [phone] [facility] [phone] [facility] [phone] [facility] [phone] Patient Language: Cambodian Prescriptions: New polymyxin B sulf-trimethoprim 10,000 unit- 1 mg/mL drops 1 drp RIGHT EYE Q3H 7 Days Qty: 10 0RF Rx Instructions: while awake; do not exceed 6 doses in 24 hours No Action gabapentin 600 mg Tablet 600 mg PO HS levothyroxine 50 mcg Tablet 50 mcg PO DAILY pantoprazole 40 mg Tablet,Delayed Release (Dr/Ec) 40 mg PO HS aloe vera 25 mg Capsule 25 mg PO DAILY duloxetine 20 mg Capsule,Delayed Release(Dr/Ec) 20 mg PO BID hydroxyzine HCl 25 mg tablet Follow-up/Referrals: PHYSICIAN NOT ON STAFF,NONSTAFF [Primary Care Provider] -
== END 2024-03-15 13:50 | disposition home or self-care (01) ==
PROVIDERS: Emergency Provider Nurse Practitioner Family
DX: H10.89 Other conjunctivitis (principal); Z79.899 Other long term (current) drug therapy
CPT/HCPCS: 99213; A9270; G0463